=== PATIENT | male | born 1945 | race Caucasian/White ===

== ENCOUNTER 2017-11-06 20:47 | Emergency (ER) | payer MEDICARE ==
[2017-11-06] MEDS ORDERED: Acetaminophen/HYDROcodone 325-5 MG Tab PO ONE (21:50)
[2017-11-06] MEDS ORDERED: Albuterol/Ipratropium 3.0-0.5 MG/3 ML Neb Soln NEB ONE (21:51)
--- NOTE | 2017-11-06 23:35 | EDM.PDOC ---
ED HPI GENERAL MEDICAL PROBLEM - General Chief Complaint: Cardiovascular Problem Stated Complaint: CHEST PAIN / BACK PAIN Time Seen by Provider: 11/06/17 21:36 Source of Information: Reports: Patient History Limitations: Reports: No Limitations - History of Present Illness INITIAL COMMENTS - FREE TEXT/NARRATIVE: This patient has multiple complaints. He's having some low back pain that's a chronic problem for him he would like something or the pain. He's also had some shortness of breath he has chronic shortness of breath due to COPD but about the last 3 nights it's been a little bit worse. Today he had an episode where his heart seemed to very rapidly for a short while and then seemed to stop and then he felt a couple of pounding beats and it's back to normal. 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 He goes to the [facility] in [place] does not have a primary care physician locally. Back Pain Score (Numeric/FACES): 6 Chest Pain Score (Numeric/FACES): 6 - Related Data Allergies Allergy/AdvReac Type Severity Reaction Status Date / Time chlorpromazine Allergy Agitation Verified 11/06/17 21:09 [From Thorazine] sertraline [From Zoloft] Allergy Agitation Verified 11/06/17 21:09 Home Meds: Home Meds Acetaminophen with Codeine [Tylenol with Codeine #3 Tablet] 1 tab PO TID [History] Atropine [West-Tropine] 0.4 mg PO DAILY 11/06/17 [History] Simvastatin [Zocor] 20 mg PO DAILY 11/06/17 [History] hydrOXYzine HCl [hydrOXYzine] 50 mg PO BID 11/06/17 [History] traZODone 100 mg PO BEDTIME 11/06/17 [History] Past Medical History Musculoskeletal History: Reports: Back Pain, Chronic Oncologic (Cancer) History: Reports: Prostate - Past Surgical History Other Cardiovascular Surgeries/Procedures: aortic anurism Male Surgical History: Reports: Prostatectomy Musculoskeletal Surgical History: Reports: Other (See Below) Other Musculoskeletal Surgeries/Procedures:: back surgery. knee surgery left knee Social & Family History - Tobacco Use Smoking Status *Q: Heavy Tobacco Smoker Years of Tobacco use: 52 Packs/Tins Daily: 1 - Caffeine Use Caffeine Use: Reports: Soda - Recreational Drug Use Recreational Drug Use: No ED ROS GENERAL - Review of Systems Review Of Systems: ROS reveals no pertinent complaints other than HPI. ED EXAM, GENERAL - Physical Exam Exam: See Below Exam Limited By: No Limitations General Appearance: Alert, WD/WN, Mild Distress (Seems to have low back pain when he moves) Eye Exam: Bilateral Eye: Normal Inspection Throat/Mouth: Normal Inspection Respiratory/Chest: Lungs Clear Cardiovascular: Normal Peripheral Pulses, Regular Rate, Rhythm GI/Abdominal: Non-Tender Extremities: Normal Inspection Neurological: Alert, Oriented Psychiatric: Normal Affect Skin Exam: Warm, Dry Course - Vital Signs Last Recorded V/S: Last Vital Signs Temp 37.3 C 11/06/17 21:13 Pulse 78 11/06/17 23:02 Resp 23 H 11/06/17 23:02 BP 197/96 H 11/06/17 23:02 Pulse Ox 91 L 11/06/17 23:02 - Orders/Labs/Meds Orders: Active Orders 24 hr Category Date Time Status EKG Documentation Completion [RC] ASDIRECTED Care 11/06/17 21:50 Active RT Aerosol Therapy [RC] ASDIRECTED Care 11/06/17 21:51 Active Chest 2V [CR] Urgent Exams 11/06/17 21:50 Taken EKG 12 Lead [EK] Urgent Ther 11/06/17 21:50 Ordered Labs: Laboratory Tests 11/06/17 11/06/17 11/06/17 Range/Units 22:02 22:02 22:02 WBC 10.5 (4.5-11.0) K/uL RBC 4.75 (4.30-5.90) M/uL Hgb 14.9 (12.0-15.0) g/dL Hct 43.8 (40.0-54.0) % MCV 92 (80-98) fL MCH 31 (27-31) pg MCHC 34 (32-36) % Plt Count 274 (150-400) K/uL Neut % (Auto) 70 H (36-66) % Lymph % (Auto) 20 L (24-44) % [place] % (Auto) 9 H (2-6) % Eos % (Auto) 1 L (2-4) % Baso % (Auto) 1 (0-1) % Sodium 137 L (140-148) mmol/L Potassium 3.7 (3.6-5.2) mmol/L Chloride 100 (100-108) mmol/L Carbon Dioxide 29 (21-32) mmol/L Anion Gap 11.7 (5.0-14.0) mmol/L BUN 18 (7-18) mg/dL Creatinine 1.3 (0.8-1.3) mg/dL Est Cr Clr Drug Dosing 58.03 mL/min Estimated GFR (MDRD) 55 L (>60) Glucose 105 (74-106) mg/dL Calcium 8.9 (8.5-10.1) mg/dL Total Bilirubin 0.7 (0.2-1.0) mg/dL AST 16 (15-37) U/L ALT 22 (12-78) U/L Alkaline Phosphatase 76 (46-116) U/L Troponin I 0.027 (0.000-0.056) ng/mL NT-Pro-B Natriuret Pep 9474 H (5-125) pg/mL Total Protein 6.9 (6.4-8.2) g/dL Albumin 3.1 L (3.4-5.0) g/dL Globulin 3.8 H (2.3-3.5) g/dL Albumin/Globulin Ratio 0.8 L (1.2-2.2) Meds: Medications Discontinued Medications Generic Name Dose Route Start Last Admin Trade Name Freq PRN Reason Stop Dose Admin Hydrocodone Bitart/Acetaminophen 2 tab 11/06/17 21:50 11/06/17 21:54 [place] 325-5 Mg PO 11/06/17 21:51 2 tab ONETIME ONE Administration Albuterol/Ipratropium 3 ml 11/06/17 21:51 11/06/17 21:55 Duoneb 3.0-0.5 Mg/3 Ml NEB 11/06/17 21:52 3 ml ONETIME ONE Administration - Radiology Interpretation Free Text/Narrative:: Chest x-ray showed hyperexpanded lungs consistent with COPD. There may be some cephalization and there may be very small bilateral pleural effusions. Heart size looks like upper limits of normal in a COPD'er - Re-Assessments/Exams Free Text/Narrative Re-Assessment/Exam: 11/07/17 05:37 EKG shows a sinus rhythm at 76 bpm possibly some left atrial enlargement there is a PAC also QT interval is prolonged. I don't see any medications that would be causing this Departure - Departure Time of Disposition: 23:31 Disposition: Home, Self-Care 01 Condition: Fair Clinical Impression: Shortness of breath, Shortness of breath Instructions: Shortness of Breath, Adult, [id number] Referrals: PCP,None [Primary Care Provider] - Forms: ED Department Discharge Additional Instructions: Your chest x-ray looks like there may be some weakness in your heart that's causing the blood to back up a little bit. There could be a very small amount of fluid under the lungs so. A blood test also shows that there may be some weakness in the heart. This could cause that back up in the blood. Eventually it could lead to some fluid in your lungs. You'll need to have some further tests done such as an echocardiogram. [facility] 2 [facility]. For your back pain you can take the [place] 5/325 one or 2 tabs every 4 hours. This medication can cause sedation and impair driving and operating machinery. - My Orders Last 24 Hours: My Active Orders 11/06/17 21:50 EKG Documentation Completion [RC] ASDIRECTED Chest 2V [CR] Urgent EKG 12 Lead [EK] Urgent 11/06/17 21:51 RT Aerosol Therapy [RC] ASDIRECTED - Assessment/Plan Last 24 Hours: My Active Orders 11/06/17 21:50 EKG Documentation Completion [RC] ASDIRECTED Chest 2V [CR] Urgent EKG 12 Lead [EK] Urgent 11/06/17 21:51 RT Aerosol Therapy [RC] ASDIRECTED
--- NOTE | 2017-11-07 09:05 | CR ---
Chest 2V HISTORY: pain COMPARISON: None FINDINGS: Lungs are hyperinflated with flattening of the diaphragm consistent with a component of COPD. No acut e infiltrate is identified. Cardiomediastinal silhouette is within normal limits. No vascular redistr ibution or pleural fluid can be seen. Bony structures and soft tissues are unremarkable. IMPRESSION: Hyperinflation consistent with COPD. No acute chest abnormality is identified.
== END 2017-11-06 23:43 | disposition home or self-care (01) ==
LOC: JP.ED 20:47
DX: R06.02 Shortness of breath (principal); J44.9 Chronic obstructive pulmonary disease, unspecified; F17.210 Nicotine dependence, cigarettes, uncomplicated; Z88.8 Allergy status to other drugs, medicaments and biological substances; Z79.899 Other long term (current) drug therapy
CPT/HCPCS: 36415; 71046; 80053; 83880; 84484; 85025; 93005; 94640; 99284; A9270; J7620

== ENCOUNTER 2017-11-15 01:00 | Emergency (ER) | payer MEDICARE ==
[2017-11-15] MEDS ORDERED: Furosemide 20 MG Tab PO ONE (01:55)
--- NOTE | 2017-11-15 02:01 | EDM.PDOC ---
ED HPI GENERAL MEDICAL PROBLEM - General Chief Complaint: Respiratory Problem Stated Complaint: MEDICAL V[facility] Time Seen by Provider: 11/15/17 01:39 Source of Information: Reports: Patient, RN Notes Reviewed History Limitations: Reports: No Limitations - History of Present Illness INITIAL COMMENTS - FREE TEXT/NARRATIVE: 72-year-old gentleman presents to the emergency department today with increasing shortness of breath, he was evaluated in the emergency department on November 06 of this month at that time felt to be in exacerbation of congestive heart failure with newly diagnosed COPD probably related to cor pulmonale picture there was a discussion at the time he did not want hospitalization [facility] unfortunately his appointment is on Sunday and he has not had an opportunity to follow-up with his primary care provider. He returns the EMS services for increasing shortness of breath he denies any fevers no nausea vomiting no GI symptomology continues to use tobacco products back pain Pain Score (Numeric/FACES): 4 - Related Data Allergies Allergy/AdvReac Type Severity Reaction Status Date / Time chlorpromazine Allergy Agitation Verified 11/06/17 21:09 [From Thorazine] sertraline [From Zoloft] Allergy Agitation Verified 11/06/17 21:09 Home Meds: Home Meds Acetaminophen with Codeine [Tylenol with Codeine #3 Tablet] 1 tab PO TID [History] Atropine [West-Tropine] 0.4 mg PO DAILY 11/06/17 [History] Simvastatin [Zocor] 20 mg PO DAILY 11/06/17 [History] hydrOXYzine HCl [hydrOXYzine] 50 mg PO BID 11/06/17 [History] traZODone 100 mg PO BEDTIME 11/06/17 [History] Past Medical History HEENT History: Reports: Impaired Vision Cardiovascular History: Reports: Heart Failure (Probable cor pulmonale) Respiratory History: Reports: COPD Gastrointestinal History: Reports: Irritable Bowel Syndrome Musculoskeletal History: Reports: Back Pain, Chronic Neurological History: Reports: Head Trauma Oncologic (Cancer) History: Reports: Prostate - Infectious Disease History Infectious Disease History: Reports: Measles - Past Surgical History Cardiovascular Surgical History: Reports: Other (See Below) Other Cardiovascular Surgeries/Procedures: aortic anurism Male Surgical History: Reports: Prostatectomy Neurological Surgical History: Reports: Other (See Below) Other Neurological Surgeries/Procedures: rods placed in back, patient states, " i dont know what they did but they put rods in my back." Musculoskeletal Surgical History: Reports: Other (See Below) Other Musculoskeletal Surgeries/Procedures:: back surgery. knee surgery left knee Social & Family History - Tobacco Use Smoking Status *Q: Heavy Tobacco Smoker Years of Tobacco use: 52 Packs/Tins Daily: 1 - Caffeine Use Caffeine Use: Reports: Soda - Recreational Drug Use Recreational Drug Use: No ED ROS GENERAL - Review of Systems Review Of Systems: See Below Constitutional: Reports: No Symptoms HEENT: Reports: No Symptoms Respiratory: Reports: Shortness of Breath Cardiovascular: Reports: Dyspnea on Exertion GI/Abdominal: Reports: No Symptoms : Reports: No Symptoms ED EXAM, GENERAL - Physical Exam Exam: See Below Exam Limited By: No Limitations General Appearance: Alert, WD/WN, No Apparent Distress Neck: Normal Inspection, Supple, Non-Tender, Full Range of Motion Respiratory/Chest: No Respiratory Distress, No Accessory Muscle Use, Crackles ( Based bilaterally) Cardiovascular: Regular Rate, Rhythm, No Murmur GI/Abdominal: Soft, Non-Tender Course - Vital Signs Last Recorded V/S: Last Vital Signs Temp 97.2 F 11/15/17 01:16 Pulse 71 11/15/17 01:16 Resp 16 11/15/17 01:16 BP 180/93 H 11/15/17 01:16 Pulse Ox 93 L 11/15/17 01:16 - Orders/Labs/Meds Orders: Active Orders 24 hr Category Date Time Status Furosemide [Lasix] Med 11/15/17 01:55 Once 20 mg PO ONETIME ONE Medication Orders Furosemide (Lasix) 20 mg PO ONETIME ONE Stop: 11/15/17 01:56 Meds: Medications Generic Name Dose Route Start Last Admin Trade Name Freq PRN Reason Stop Dose Admin Furosemide 20 mg 11/15/17 01:55 Lasix PO 11/15/17 01:56 ONETIME ONE Departure - Departure Time of Disposition: 02:00 Disposition: Home, Self-Care 01 Condition: Fair Clinical Impression: Chronic obstructive pulmonary disease Qualifiers: COPD type: unspecified COPD Qualified Code(s): J44.9 - Chronic obstructive pulmonary disease, unspecified Referrals: PCP,None [Primary Care Provider] - Additional Instructions: Use your albuterol inhaler as needed, start the Lasix one tablet once a day tomorrow morning, please keep your follow-up appointment with your primary care provider on Sunday, call return to the emergency department worsening of symptoms - My Orders Last 24 Hours: My Active Orders 11/15/17 01:55 Furosemide [Lasix] 20 mg PO ONETIME ONE - Assessment/Plan Last 24 Hours: My Active Orders 11/15/17 01:55 Furosemide [Lasix] 20 mg PO ONETIME ONE Plan: Assessment Acuity = acute Site and laterality = COPD exacerbation with elevated BNP consistent with heart failure pattern Etiology = suspicious for underlying cor pulmonale Manifestations = dyspnea Location of injury = Home Lab values = none Plan I did sit and review the lab work with him from the visit emergency department on November 06 are most remarkable aspect was a BNP of 9400. He is not on any breathing treatments also he is not on any diuretics. I provided him a prescription for Lasix 20 mg once a day as well as an abuser all inhaler, this should be enough for him to get started for his follow-up with his primary care on Sunday This note was dictated using Vee[employer] voice recognition software please call with any questions on syntax or tim.
[2017-11-15] MEDS ORDERED: Nitroglycerin 0.4 MG Tab.SL SL ONE (02:09)
== END 2017-11-15 02:22 | disposition home or self-care (01) ==
LOC: JP.ED 01:00
DX: J44.1 Chronic obstructive pulmonary disease with (acute) exacerbation (principal); I50.9 Heart failure, unspecified; F17.210 Nicotine dependence, cigarettes, uncomplicated; Z88.8 Allergy status to other drugs, medicaments and biological substances; Z79.899 Other long term (current) drug therapy
CPT/HCPCS: 99283; 99285; A9270

== ENCOUNTER 2017-11-18 19:09 | Inpatient (IN) | payer MEDICARE, OTHER ==
[2017-11-18] MEDS ORDERED: Acetaminophen/oxyCODONE 325-5 MG Tab PO ONE (19:47)
[2017-11-18] MEDS ORDERED: Lisinopril 10 MG Tab PO ONE (20:30)
--- NOTE | 2017-11-18 21:03 | EDM.PDOC ---
ED HPI GENERAL MEDICAL PROBLEM - General Chief Complaint: Chest Pain Stated Complaint: CHEST PAINS Time Seen by Provider: 11/18/17 19:28 Source of Information: Reports: Patient History Limitations: Reports: No Limitations - History of Present Illness INITIAL COMMENTS - FREE TEXT/NARRATIVE: This gentleman comes in complaining of chest pain for about 2 weeks. He describes sort of a dull substernal pressure like sensation but then gets frequent sharp stabs of pain in the lower sternal area which sort of radiates to his back. He also notes pain with breathing as well as some chest wall tenderness. When seen on November 06 chest x-ray was done initially was thought to show mild CHF changes but subsequently the radiologist read this as COPD only. Patient occasionally gets short of breath at home. He has COPD which was diagnosed just recently. He said he's been afraid to fall asleep at night for the past 5 or 6 days because of this at the time of exam he is just having some very mild vague chest pressure but he continues to get these sharp stabs of pain and when he has the sharp stabs he sort of jumps is also noted to be hypertensive it was planned back then from the [facility] 2 days so nothing was done about that. He was seen in the ER again 3 days ago and was having some shortness of breath. He was prescribed an albuterol inhaler and put on Lasix 20 mg daily. He does not have a local doctor he gets even his primary care at the [facility] in [place] This patient has had a thoracic aortic aneurysm repaired - Related Data Allergies Allergy/AdvReac Type Severity Reaction Status Date / Time chlorpromazine AdvReac Agitation Verified 11/18/17 20:43 [From Thorazine] sertraline [From Zoloft] AdvReac Agitation Verified 11/18/17 20:43 Home Meds: Home Meds Acetaminophen with Codeine [Tylenol with Codeine #3 Tablet] 1 tab PO QID [History] Atropine [[place]-Tropine] 0.4 mg PO BID 11/06/17 [History] Simvastatin [Zocor] 20 mg PO BEDTIME 11/06/17 [History] hydrOXYzine HCl [hydrOXYzine] 50 mg PO QID 11/06/17 [History] traZODone 100 mg PO BEDTIME 11/06/17 [History] Pregabalin [Lyrica] 25 mg PO BID 11/18/17 [History] Past Medical History HEENT History: Reports: Impaired Vision Cardiovascular History: Reports: Aneurysm, High Cholesterol Respiratory History: Reports: COPD Gastrointestinal History: Reports: Irritable Bowel Syndrome Musculoskeletal History: Reports: Back Pain, Chronic Neurological History: Reports: Head Trauma Psychiatric History: Reports: Anxiety, Depression, PTSD Hematologic History: Reports: Blood Transfusion(s) Oncologic (Cancer) History: Reports: Prostate - Infectious Disease History Infectious Disease History: Reports: Measles - Past Surgical History Cardiovascular Surgical History: Reports: Other (See Below) Other Cardiovascular Surgeries/Procedures: aortic aneurysm- fixed in 2016 Male Surgical History: Reports: Prostatectomy Neurological Surgical History: Reports: Other (See Below) Other Neurological Surgeries/Procedures: rods placed in back, patient states, " i dont know what they did but they put rods in my back." Musculoskeletal Surgical History: Reports: Arthroscopic Knee, Other (See Below) Other Musculoskeletal Surgeries/Procedures:: back surgery. knee surgery left knee Social & Family History - Tobacco Use Smoking Status *Q: Current Every Day Smoker Years of Tobacco use: 55 Packs/Tins Daily: 1 - Caffeine Use Caffeine Use: Reports: None - Recreational Drug Use Recreational Drug Use: No ED ROS GENERAL - Review of Systems Review Of Systems: See Below Constitutional: Reports: No Symptoms HEENT: Reports: No Symptoms Respiratory: Reports: Shortness of Breath Cardiovascular: Reports: Chest Pain, Blood Pressure Problem, Other Endocrine: Reports: No Symptoms (See history of present illness) GI/Abdominal: Reports: No Symptoms : Reports: No Symptoms Musculoskeletal: Reports: No Symptoms Skin: Reports: No Symptoms Neurological: Reports: No Symptoms ED EXAM, GENERAL - Physical Exam Exam: See Below Exam Limited By: No Limitations General Appearance: Alert, WD/WN, Mild Distress (He seems to occasionally get sharp stabs of pain that caused him to jump) Eye Exam: Bilateral Eye: Normal Inspection Ears: Normal External Exam Nose: Normal Inspection Throat/Mouth: Normal Oropharynx Respiratory/Chest: Lungs Clear, Decreased Breath Sounds. No: Rales Cardiovascular: Regular Rate, Rhythm, No Murmur Peripheral Pulses: 1+: Radial (L) (There is a very weak left radial pulse), 2+: Radial (R) (. right radial pulse is very strong ) GI/Abdominal: Non-Tender Back Exam: Normal Inspection Extremities: Normal Inspection Neurological: Alert, Oriented, CN II-XII Intact, No Motor/Sensory Deficits Psychiatric: Normal Affect Skin Exam: Warm, Dry Course - Vital Signs Last Recorded V/S: Last Vital Signs Temp 36.2 C 11/18/17 19:13 Pulse 79 11/18/17 20:40 Resp 17 11/18/17 20:40 BP 194/98 H 11/18/17 20:40 Pulse Ox 93 L 11/18/17 20:40 - Orders/Labs/Meds Orders: Active Orders 24 hr Category Date Time Status EKG Documentation Completion [RC] ASDIRECTED Care 11/18/17 19:47 Active Chest 1V Frontal [CR] Urgent Exams 11/18/17 19:46 Taken EKG 12 Lead [EK] Urgent Ther 11/18/17 19:46 Ordered Labs: Laboratory Tests 11/18/17 11/18/17 Range/Units 19:57 19:57 WBC 8.5 (4.5-11.0) K/uL RBC 4.69 (4.30-5.90) M/uL Hgb 14.7 (12.0-15.0) g/dL Hct 42.9 (40.0-54.0) % MCV 92 (80-98) fL MCH 31 (27-31) pg MCHC 34 (32-36) % Plt Count 219 (150-400) K/uL Neut % (Auto) 79 H (36-66) % Lymph % (Auto) 12 L (24-44) % [place] % (Auto) 7 H (2-6) % Eos % (Auto) 1 L (2-4) % Baso % (Auto) 1 (0-1) % Sodium 142 (140-148) mmol/L Potassium 3.7 (3.6-5.2) mmol/L Chloride 102 (100-108) mmol/L Carbon Dioxide 32 (21-32) mmol/L Anion Gap 7.6 (5.0-14.0) mmol/L BUN 21 H (7-18) mg/dL Creatinine 1.2 (0.8-1.3) mg/dL Est Cr Clr Drug Dosing 62.87 mL/min Estimated GFR (MDRD) 60 (>60) Glucose 144 H (74-106) mg/dL Calcium 8.4 L (8.5-10.1) mg/dL Total Bilirubin 0.5 (0.2-1.0) mg/dL AST 19 (15-37) U/L ALT 21 (12-78) U/L Alkaline Phosphatase 68 (46-116) U/L Troponin I 0.035 (0.000-0.056) ng/mL NT-Pro-B Natriuret Pep 93458 H (5-125) pg/mL Total Protein 6.7 (6.4-8.2) g/dL Albumin 2.9 L (3.4-5.0) g/dL Globulin 3.8 H (2.3-3.5) g/dL Albumin/Globulin Ratio 0.8 L (1.2-2.2) Meds: Medications Discontinued Medications Generic Name Dose Route Start Last Admin Trade Name Freq PRN Reason Stop Dose Admin Lisinopril 10 mg 11/18/17 20:30 11/18/17 20:40 Prinivil PO 11/18/17 20:31 10 mg ONETIME ONE Administration Oxycodone/Acetaminophen 2 tab 11/18/17 19:47 11/18/17 19:50 Percocet 325-5 Mg PO 11/18/17 19:48 2 tab ONETIME ONE Administration - Radiology Interpretation Free Text/Narrative:: Chest x-ray shows changes consistent with COPD but no definite congestive failure - Re-Assessments/Exams Free Text/Narrative Re-Assessment/Exam: 11/18/17 21:04 EKG shows sinus rhythm at 87 bpm probably some left atrial enlargement there is a lack of R-wave height in the 2 suggesting a anteroseptal infarct and that was seen on his previous EKG. There may be slight ST depression in lateral leads This patient was given Percocet 5/325 2 tablets by mouth and then later given lisinopril 10 mg orally. Free Text/Narrative Re-Assessment/Exam: 11/18/17 21:05 [facility] [place] [facility] Lord and he felt it would be okay for him to be hospitalized at our facility. I spoke with Dr. Victor he would like him admitted to the ICU and he will be in to see him shortly Departure - Departure Time of Disposition: 21:06 Disposition: Admitted As Inpatient 68 Condition: Fair Clinical Impression: Chest pain Chronic obstructive pulmonary disease Qualifiers: COPD type: unspecified COPD Qualified Code(s): J44.9 - Chronic obstructive pulmonary disease, unspecified Referrals: PCP,None [Primary Care Provider] - Forms: ED Department Discharge - My Orders Last 24 Hours: My Active Orders 11/18/17 19:46 Chest 1V Frontal [CR] Urgent EKG 12 Lead [EK] Urgent 11/18/17 19:47 EKG Documentation Completion [RC] ASDIRECTED - Assessment/Plan Last 24 Hours: My Active Orders 11/18/17 19:46 Chest 1V Frontal [CR] Urgent EKG 12 Lead [EK] Urgent 11/18/17 19:47 EKG Documentation Completion [RC] ASDIRECTED
[2017-11-18] MEDS ORDERED: Nitroglycerin 0.4 MG Tab.SL SL PRN (22:06)
[2017-11-18] MEDS ORDERED: Metoprolol Tartrate 25 MG Tab PO ONE (22:30)
[2017-11-18] MEDS ORDERED: Pregabalin 25 MG Cap PO ONE (23:15)
[2017-11-18] MEDS ORDERED: Acetaminophen/Codeine 300-30 MG Tab PO ONE (23:15)
[2017-11-18] MEDS ORDERED: hydrOXYzine HCl 25 MG Tab PO ONE (23:15)
[2017-11-18] MEDS ORDERED: Simvastatin 20 MG Tab PO ONE (23:15)
[2017-11-18] MEDS ORDERED: traZODone 50 MG Tab PO ONE (23:15)
[2017-11-18] MEDS: Albuterol/Ipratropium 3.0-0.5 MG/3 ML Neb Soln NEB SCH (23:28)
[2017-11-18] MEDS: Atropine/Diphenoxylate 0.025-2.5 MG Tab PO SCH (23:52)
--- NOTE | 2017-11-19 03:19 | HP ---
IDENTIFYING DATA: Tree Olivares is a 72-year-old male from [place]. CHIEF COMPLAINT: Chest pain and decreased exercise tolerance. HISTORY OF PRESENT ILLNESS: An elderly gentleman, chronically disabled by previous back injury, has a lifelong history of 1-pack per day tobacco use, having discontinued approximately 2 weeks ago. He notes a 2-week history of diminished exercise tolerance, vague recurring anterior chest discomfort, and cough with sputum production ranging from milky to brown in appearance. He has had no fevers or chills. No hemoptysis. No history of documented obstructive pulmonary disease, though radiographic studies have suggested such. He has been seen on 2 earlier occasions in the emergency room with chest discomfort and shortness of breath. He is noted to have an elevated BNP suggesting early congestive heart failure and was provided albuterol metered-dose inhaler as well as Lasix. He has not initiated his diuretic therapy. He is using his albuterol on a p.r.n. basis and notes subjective relief of dyspneic symptoms for less than 0.5 hour. He has a noted history of hypertension and hyperlipidemia. No definitive history of ischemic heart disease, DE, stroke, or stroke-like episodes. He does have a history of a thoracic aortic aneurysm, managed with an aortic aneurysm resection in 2016. 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 He reports previous radiographic studies have shown asymmetry in size of the kidneys, though by lab results, renal function appears to be stable and radiographic imaging shows no progressive changes in the appearance of the renal anatomy by CT imaging. PAST MEDICAL HISTORY: Previous surgeries included thoracic aneurysm repair in 2016, stenting of bilateral iliac stenosis 2015, left total knee arthroplasty. He also reports a fall from a 25-foot height while working in the [facility] in 1984 with resultant back injury requiring surgical stabilization with multiple rods. He has had chronic pain secondary to this with resultant disability. HABITS: Previous one-pack per day tobacco use. Infrequent use of caffeinated beverages. No use of alcohol. IMMUNIZATIONS: He does receive annual influenza vaccine at the [facility]. He reports his pneumococcal series is complete. 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 SOCIAL HISTORY: Disabled by chronic health problems. [place], [place]. FAMILY HISTORY: Notes mother had a history of chronic bronchitis. Brothers have a history of obstructive pulmonary disease. Brother has a history of diabetes and prostate cancer. REVIEW OF SYSTEMS: NEUROLOGIC: No stroke, seizures, or focal weakness. Chronic back pain secondary to injury as noted. He has general anxiety and reported PTSD. CARDIAC: As above. RESPIRATORY: COPD with discolored sputum production developing. GI: Remote history of suspected hepatitis. No active hepatic disease. Denies diarrhea, melena, hematochezia, or chronic dyspepsia. : Asymmetry in renal size without evidence of renal insufficiency by lab review. MUSCULOSKELETAL: Chronic back pain. Previous left total knee arthroplasty. ALLERGIES: HE NOTES AGITATION WITH USE OF CHLORPROMAZINE AND SERTRALINE. MEDICATIONS: Acetaminophen with codeine 1 tablet q.i.d., atropine 0.4 mg b.i.d., simvastatin 20 mg at h.s., hydroxyzine 50 mg q.i.d., trazodone 100 mg at h.s., Lyrica 25 mg b.i.d. PHYSICAL EXAMINATION: GENERAL: Appearance is that of an adult male in mild respiratory distress. VITAL SIGNS: Temperature 36.2 degrees centigrade, pulse 79, respiratory rate 17, blood pressure elevated at 194/98, O2 saturation is 93% on room air. HEENT: Hearing is intact with normal canals. Sclerae are anicteric. Extraocular eye movements are intact. No facial asymmetry. Speech is clear. Oral mucosa is moist and pink. NECK: Brisk, regular carotid pulses without bruits, JVD, or adenopathy. LUNGS: Resonant to percussion, mildly labored respiratory effort. Coarse bilateral expiratory rhonchi. No wheezes or rales. No retractions. HEART: Regular without murmurs or gallops noted. ABDOMEN: Nontender, nondistended. No organomegaly. Active sounds. Good femoral pulses. No abdominal bruits or CVA pain. : Omitted. RECTAL: Omitted. EXTREMITIES: Palpable posterior tibial and dorsal pedal pulses. SKIN: Warm, pink, and dry with brisk capillary refill. No pitting edema or open skin lesions. LABORATORY DATA: On admission, WBC 8.5, hemoglobin 14.7, hematocrit 42.9, platelet count 219,000. Sodium 142, potassium 3.7, BUN 21, creatinine 1.2, glucose 144, calcium 8.4, alkaline phosphatase 68, AST 19. BNP is elevated at 13,984. Chest x-ray reports suspected obstructive pulmonary disease without evidence of acute infiltrates. IMPRESSION: 1. Recurring anterior chest discomfort. 2. Suspected obstructive pulmonary disease with acute exacerbation and increased sputum production. 3. Longstanding tobacco use with recent discontinuation. 4. Hypertension. 5. Hyperlipidemia. 6. Elevated BNP suggest underlying congestive heart failure. 7. History of thoracic aneurysm with surgical repair in 2015. 8. Peripheral vascular disease with bilateral iliac artery stenting in 2015. 9. Remote history of lumbar spine injury requiring surgical stabilization in 1984. PLAN: The patient appears to be in mild respiratory distress. We will monitor in the ICU, provide O2 by nasal cannula, and initiate DuoNebs on a routine basis. Oral antibiotics with use of cefdinir are offered. To evaluate for potential underlying congestive heart failure, echocardiogram is requested. Additionally, we will repeat troponin in the a.m. Renal function currently appears to be stable. We will maintain on standard home medications. The patient does indicate desire to proceed with resuscitative efforts including CPR and ventilatory support if reversible condition warrants aggressive cares. We will anticipate discharge of less than 72 hours and probable outpatient [facility] with [facility]. Nilo Sue MD /[id number]
[2017-11-19] MEDS: Albuterol/Ipratropium 3.0-0.5 MG/3 ML Neb Soln NEB SCH ×4 (05:25→22:05)
[2017-11-19] MEDS: Acetaminophen/Codeine 300-30 MG Tab PO SCH ×4 (05:26→22:04)
[2017-11-19] MEDS: hydrOXYzine HCl 25 MG Tab PO SCH ×4 (05:26→22:04)
--- NOTE | 2017-11-19 06:44 | PN ---
DATE OF SERVICE: 11/19/2017 SUBJECTIVE: An elderly male with a lifelong history of chronic tobacco use and suspected underlying COPD additionally with a history of hypertension, hyperlipidemia, and previous thoracic aneurysm repair was admitted with atypical recurring anterior chest pain in the late evening hours yesterday. Through the night, he has rested comfortably with use of cardiac monitoring, hypertensive management, initiated oral antibiotics and oxygen therapy coupled with inhaled bronchodilators. He denies current pain. Does have a moderately productive cough, O2 sats are fluctuating though stabilized with oxygen supplementation. OBJECTIVE: VITAL SIGNS: Temperature 36.4 degrees centigrade, pulse 54, sinus bradycardia with beta-amador having been initiated, blood pressure 126/54, respiratory rate 20 with O2 sats of 88%. NECK: Brisk carotid pulses. No bruits or JVD. LUNGS: Continued expiratory rhonchi. Respiratory rate is easy at the present time. HEART: Regular, bradycardic. No murmurs or gallops noted. EXTREMITIES: Warm, pink, and dry. Followup troponin this a.m. is pending. IMPRESSION AND PLAN: Complaints of diminished exercise tolerance and atypical chest pain. Suspect this is secondary to underlying obstructive pulmonary disease accompanied by acute bronchitic illness. We will continue with inhaled therapies and antibiotics. The patient does have a pending echocardiogram with noted elevated BNP on admission. Additionally, when his respiratory status stabilizes, would benefit from pulmonary function test. Suspect ongoing inhaled therapies will be necessary for respiratory support as well, and would consider initiating Spiriva with p.r.n. rescue beta agonists on time of discharge. Allow light activity with ambulation. Provide standard diet. We will follow up at midday to make decisions on potential discharge planning. Nilo Sue MD /[id number]
[2017-11-19] MEDS: Aspirin 81 MG Tab.Chew PO SCH (08:41)
[2017-11-19] MEDS: Cefdinir 300 MG Cap PO SCH ×2 (08:41→22:03)
[2017-11-19] MEDS: amLODIPine 5 MG Tab PO SCH (08:42)
[2017-11-19] MEDS: Atropine/Diphenoxylate 0.025-2.5 MG Tab PO SCH ×2 (08:45→22:04)
[2017-11-19] MEDS: Pregabalin 25 MG Cap PO SCH ×2 (08:46→22:03)
[2017-11-19] MEDS ORDERED: Metoprolol Tartrate 25 MG Tab PO SCH (09:00)
--- NOTE | 2017-11-19 10:06 | CR ---
Chest 1V Frontal HISTORY: Pain COMPARISON: 11/06/2017 FINDINGS: Interstitial perihilar prominence likely representing mild edema. No dense consolidation. T he cardiac size is stable. Impression: Probable mild CHF. No focal dense infiltrate.
[2017-11-19] MEDS ORDERED: traZODone 50 MG Tab PO SCH (21:00)
[2017-11-19] MEDS: Simvastatin 20 MG Tab PO SCH ×2 (22:04→22:08)
[2017-11-20] MEDS: Albuterol/Ipratropium 3.0-0.5 MG/3 ML Neb Soln NEB SCH ×2 (05:27→10:34)
[2017-11-20] MEDS: Acetaminophen/Codeine 300-30 MG Tab PO SCH ×2 (05:27→09:31)
[2017-11-20] MEDS: hydrOXYzine HCl 25 MG Tab PO SCH (05:27)
[2017-11-20] MEDS: Aspirin 81 MG Tab.Chew PO SCH (09:22)
[2017-11-20] MEDS: amLODIPine 5 MG Tab PO SCH (09:23)
[2017-11-20] MEDS: Atropine/Diphenoxylate 0.025-2.5 MG Tab PO SCH (09:24)
[2017-11-20] MEDS: Cefdinir 300 MG Cap PO SCH (09:27)
[2017-11-20] MEDS: Pregabalin 25 MG Cap PO SCH (09:27)
== END 2017-11-20 11:19 | disposition home or self-care (01) | DRG 192 ==
LOC: JP.ED 19:09 → OBSVTOIN 21:08 → JP.ICU 21:08
PROVIDERS: ADMIT Family Medicine; ATTEND Family Medicine
DX: J44.1 Chronic obstructive pulmonary disease with (acute) exacerbation (principal); R07.9 Chest pain, unspecified; I10 Essential (primary) hypertension; E78.5 Hyperlipidemia, unspecified; I73.9 Peripheral vascular disease, unspecified; Z88.8 Allergy status to other drugs, medicaments and biological substances; Z79.899 Other long term (current) drug therapy; Z87.891 Personal history of nicotine dependence; F41.8 Other specified anxiety disorders; Z85.46 Personal history of malignant neoplasm of prostate; Z98.890 Other specified postprocedural states
CPT/HCPCS: 36415; 71045; 71045-26; 80053; 83880; 84484; 85025; 93005; 93306; 94640; 99285-25; A9270-GY; J7620

== ENCOUNTER 2017-11-30 11:00 | Emergency (ER) | payer OTHER ==
[2017-11-30] MEDS ORDERED: Nitroglycerin 0.4 MG Tab.SL SL ONE (12:06)
[2017-11-30] MEDS ORDERED: Furosemide 40 MG Tab PO ONE (12:06)
--- NOTE | 2017-11-30 12:10 | EDM.PDOC ---
ED HPI GENERAL MEDICAL PROBLEM - General Chief Complaint: General Stated Complaint: CHEST PRESSURE Time Seen by Provider: 11/30/17 11:39 Source of Information: Reports: Patient, RN Notes Reviewed History Limitations: Reports: No Limitations - History of Present Illness INITIAL COMMENTS - FREE TEXT/NARRATIVE: 72-year-old gentleman presents emergency department today complaint of blood pressure problems, he has known history of hypertension as well as congestive heart failure, he admits to being some confusion between his care [facility] here is currently not taking any medications He declines blood work, state he only wants an RX for his blood pressure Lower Back Pain Score (Numeric/FACES): 4 - Related Data Allergies Allergy/AdvReac Type Severity Reaction Status Date / Time chlorpromazine AdvReac Agitation Verified 11/30/17 11:11 [From Thorazine] sertraline [From Zoloft] AdvReac Agitation Verified 11/30/17 11:11 Home Meds: Home Meds Acetaminophen with Codeine [Tylenol with Codeine #3 Tablet] 1 tab PO QID [History] Simvastatin [Zocor] 20 mg PO BEDTIME 11/06/17 [History] hydrOXYzine HCl [hydrOXYzine] 50 mg PO QID 11/06/17 [History] traZODone 100 mg PO BEDTIME 11/06/17 [History] Pregabalin [Lyrica] 25 mg PO BID 11/18/17 [History] Albuterol Sulfate [Proventil Hfa] 1 puff INH Q4H PRN 11/19/17 [History] Albuterol/Ipratropium [DuoNeb 3.0-0.5 MG/3 ML] 3 ml NEB Q6H #120 neb 11/19/17 [ Rx] Aspirin 81 mg PO DAILY tab.chew 11/19/17 [Rx] Atropine/Diphenoxylate [Diphenoxylate-Atropine] 1 tab PO BID tablet 11/19/17 [ Rx] LORazepam 0.5 mg PO BID PRN #60 tablet 11/19/17 [Rx] Past Medical History HEENT History: Reports: Impaired Vision, Other (See Below) Other HEENT History: partial dentures Cardiovascular History: Reports: Aneurysm, Blood Clots/VTE/DVT, High Cholesterol , Hypertension Respiratory History: Reports: COPD Gastrointestinal History: Reports: Irritable Bowel Syndrome Genitourinary History: Reports: Prostate Disorder Musculoskeletal History: Reports: Back Pain, Chronic Neurological History: Reports: Head Trauma Psychiatric History: Reports: Anxiety, Depression, PTSD Endocrine/Metabolic History: Reports: Other (See Below) Other Endocrine/Metabolic History: on hormone shots Hematologic History: Reports: Blood Transfusion(s) Oncologic (Cancer) History: Reports: Prostate - Infectious Disease History Infectious Disease History: Reports: Chicken Pox, Measles, Mumps - Past Surgical History Cardiovascular Surgical History: Reports: AAA Repair, Other (See Below) Other Cardiovascular Surgeries/Procedures: aortic aneurysm- fixed in 2016 Male Surgical History: Reports: Prostatectomy Neurological Surgical History: Reports: Lumbar Spine, Other (See Below) Other Neurological Surgeries/Procedures: rods placed in back, patient states, " i dont know what they did but they put rods in my back." Musculoskeletal Surgical History: Reports: Arthroscopic Knee, Other (See Below) Other Musculoskeletal Surgeries/Procedures:: back surgery. knee surgery left knee Social & Family History - Tobacco Use Smoking Status *Q: Current Every Day Smoker Years of Tobacco use: 55 Packs/Tins Daily: 0.2 Used Tobacco, but Quit: Yes Month/Year Tobacco Last Used: 11/20/17 Second Hand Smoke Exposure: No - Caffeine Use Caffeine Use: Reports: None - Recreational Drug Use Recreational Drug Use: No ED ROS GENERAL - Review of Systems Review Of Systems: See Below Constitutional: Reports: No Symptoms Respiratory: Reports: Shortness of Breath Cardiovascular: Reports: Blood Pressure Problem GI/Abdominal: Reports: No Symptoms : Reports: No Symptoms ED EXAM, GENERAL - Physical Exam Exam: See Below Exam Limited By: No Limitations General Appearance: Alert, WD/WN, No Apparent Distress Neck: Normal Inspection, Supple, Non-Tender, Full Range of Motion Respiratory/Chest: No Respiratory Distress, Lungs Clear, Normal Breath Sounds, No Accessory Muscle Use Cardiovascular: Regular Rate, Rhythm, No Murmur GI/Abdominal: Soft, Non-Tender Course - Vital Signs Last Recorded V/S: Last Vital Signs Temp 96.8 F 11/30/17 11:23 Pulse 68 11/30/17 12:27 Resp 18 11/30/17 12:27 BP 176/90 H 11/30/17 12:27 Pulse Ox 96 11/30/17 12:27 - Orders/Labs/Meds Meds: Medications Discontinued Medications Generic Name Dose Route Start Last Admin Trade Name Tran PRN Reason Stop Dose Admin Furosemide 40 mg 11/30/17 12:06 11/30/17 12:12 Lasix PO 11/30/17 12:07 40 mg ONETIME ONE Administration Nitroglycerin 0.4 mg 11/30/17 12:06 11/30/17 12:13 Nitrostat SL 11/30/17 12:07 0.4 mg ONETIME ONE Administration Departure - Departure Time of Disposition: 12:36 Disposition: Home, Self-Care 01 Condition: Fair Clinical Impression: CHF, Congestive heart failure Hypertension Qualifiers: Hypertension type: essential hypertension Qualified Code(s): I10 - Essential ( primary) hypertension - Discharge Information Referrals: Finn Tineo MD [Primary Care Provider] - Forms: ED Department Discharge Additional Instructions: Please start medications of lisinopril 10 mg once a day start today, start your Lasix 20 mg once a day start tomorrow use Ativan as needed for anxiety symptoms , please follow-up with your primary care provider on Sunday for reevaluation, call return to the emergency department with worsening of symptoms - Assessment/Plan Plan: Assessment Acuity = acute Site and laterality = congestive heart failure and uncontrolled hypertension Etiology = poor medical compliance Manifestations = chest pressure Location of injury = Home Lab values = patient declined Plan He was given 1 sublingual nitroglycerin and 40 mg of Lasix by mouth his blood pressure did respond came down to the systolics of 170 he had good improvement felt better asked to be discharged home. I did agree to write him for medications of lisinopril 10 mg once a day total #30, Lasix 20 mg once day total #30 and Ativan 1 mg by mouth 3 times a day when necessary total #10, he has a follow-up with a new primary care provider on Sunday of this next week This note was dictated using [employer] voice recognition software please call with any questions on syntax or tim.
== END 2017-11-30 12:42 | disposition home or self-care (01) ==
LOC: JP.ED 11:00
DX: I11.0 Hypertensive heart disease with heart failure (principal); I50.9 Heart failure, unspecified; E78.00 Pure hypercholesterolemia, unspecified; J44.9 Chronic obstructive pulmonary disease, unspecified; F17.210 Nicotine dependence, cigarettes, uncomplicated; Z88.8 Allergy status to other drugs, medicaments and biological substances; Z79.82 Long term (current) use of aspirin; Z79.899 Other long term (current) drug therapy
CPT/HCPCS: 99285; A9270

== ENCOUNTER 2018-04-29 15:19 | Emergency (ER) | payer MEDICARE ==
[2018-04-29] MEDS ORDERED: Sodium Chloride 0.9% 1,000 ML IV SCH (15:30)
[2018-04-29] MEDS ORDERED: HYDROmorphone 1 MG/ML Syringe IVPUSH ONE (15:30)
[2018-04-29] MEDS ORDERED: Ondansetron 4 MG/2 ML SDV IVPUSH ONE (15:30)
[2018-04-29] MEDS ORDERED: LORazepam 2 MG/ML SDV IVPUSH ONE (16:31)
--- NOTE | 2018-04-29 18:04 | EDM.PDOC ---
ED HPI GENERAL MEDICAL PROBLEM - General Chief Complaint: Flank Pain Stated Complaint: RIGHT SIDE PAIN Time Seen by Provider: 04/29/18 15:30 Source of Information: Reports: Patient, Family () History Limitations: Reports: No Limitations - History of Present Illness INITIAL COMMENTS - FREE TEXT/NARRATIVE: right flank pain; this is a 72 year old male presents to ER with , reports sudden onset of right sided flank pain similar to his previous kidney stone attacks. reports pain started suddenly at 10 am this morning and has been in constant pain ever since. denies any injury to back , but had spinal surgery, and was cutting wood yesterday and threw a cord of wood. Onset: Sudden Onset Date: 04/29/18 Onset Time: 10:00 Duration: Constant Location: Reports: Back Quality: Reports: Sharp, Stabbing (intermittent) Severity: Severe Improves with: Reports: None Worsens with: Reports: Movement (constant pain unchanged with movement or rest) Right Flank Pain Score (Numeric/FACES): 10 - Related Data Allergies Allergy/AdvReac Type Severity Reaction Status Date / Time chlorpromazine AdvReac Agitation Verified 11/30/17 11:11 [From Thorazine] sertraline [From Zoloft] AdvReac Agitation Verified 11/30/17 11:11 Home Meds: Home Meds Simvastatin [Zocor] 20 mg PO BEDTIME 11/06/17 [History] hydrOXYzine HCl [hydrOXYzine] 50 mg PO QID 11/06/17 [History] traZODone 100 mg PO BEDTIME 11/06/17 [History] Pregabalin [Lyrica] 25 mg PO BID 11/18/17 [History] Albuterol Sulfate [Proventil Hfa] 1 puff INH Q4H PRN 11/19/17 [History] Albuterol/Ipratropium [DuoNeb 3.0-0.5 MG/3 ML] 3 ml NEB Q6H #120 neb 11/19/17 [ Rx] Aspirin 81 mg PO DAILY tab.chew 11/19/17 [Rx] Atropine/Diphenoxylate [Diphenoxylate-Atropine] 1 tab PO BID tablet 11/19/17 [ Rx] Lisinopril 20 mg PO DAILY 04/29/18 [History] Past Medical History HEENT History: Reports: Impaired Vision, Other (See Below) Other HEENT History: partial dentures Cardiovascular History: Reports: Aneurysm, Blood Clots/VTE/DVT, High Cholesterol , Hypertension Respiratory History: Reports: COPD Gastrointestinal History: Reports: Irritable Bowel Syndrome Genitourinary History: Reports: Prostate Disorder Musculoskeletal History: Reports: Back Pain, Chronic Neurological History: Reports: Head Trauma Psychiatric History: Reports: Anxiety, Depression, PTSD Endocrine/Metabolic History: Reports: Other (See Below) Other Endocrine/Metabolic History: on hormone shots Hematologic History: Reports: Blood Transfusion(s) Oncologic (Cancer) History: Reports: Prostate - Infectious Disease History Infectious Disease History: Reports: Chicken Pox, Measles, Mumps - Past Surgical History Cardiovascular Surgical History: Reports: AAA Repair, Other (See Below) Other Cardiovascular Surgeries/Procedures: aortic aneurysm- fixed in 2016 Male Surgical History: Reports: Prostatectomy Neurological Surgical History: Reports: Lumbar Spine, Other (See Below) Other Neurological Surgeries/Procedures: rods placed in back, patient states, " i dont know what they did but they put rods in my back." Musculoskeletal Surgical History: Reports: Arthroscopic Knee, Other (See Below) Other Musculoskeletal Surgeries/Procedures:: back surgery. knee surgery left knee Social & Family History - Tobacco Use Smoking Status *Q: Current Every Day Smoker Years of Tobacco use: 52 Packs/Tins Daily: 1 Used Tobacco, but Quit: No Second Hand Smoke Exposure: Yes - Caffeine Use Caffeine Use: Reports: None - Alcohol Use Days Per Week of Alcohol Use: 0 - Recreational Drug Use Recreational Drug Use: No - Living Situation & Occupation Living situation: Reports: , with Family Occupation: Retired ED ROS GENERAL - Review of Systems Review Of Systems: See Below Constitutional: Reports: Other (acute right flank pain) HEENT: Reports: No Symptoms Respiratory: Reports: No Symptoms Cardiovascular: Reports: No Symptoms Endocrine: Reports: No Symptoms GI/Abdominal: Reports: No Symptoms : Reports: Other (current self cath complication of prostate surgery) Musculoskeletal: Reports: Back Pain (chronic back pain, hx of spinal fusion.) Skin: Reports: No Symptoms Neurological: Reports: No Symptoms Psychiatric: Reports: No Symptoms Hematologic/Lymphatic: Reports: No Symptoms Immunologic: Reports: No Symptoms ED EXAM, GENERAL - Physical Exam Exam: See Below Exam Limited By: No Limitations General Appearance: Alert, WD/WN, Anxious, Moderate Distress Eye Exam: Bilateral Eye: Normal Inspection Ears: Normal External Exam, Normal Canal, Hearing Grossly Normal, Normal TMs Ear Exam: Bilateral Ear: Auricle Normal, Canal Normal, TM normal Nose: Normal Inspection, Normal Mucosa, No Blood Throat/Mouth: Normal Inspection, Normal Lips, Normal Teeth, Normal Gums, Normal Oropharynx, Normal Voice, No Airway Compromise Head: Atraumatic, Normocephalic Neck: Normal Inspection, Supple, Non-Tender, Full Range of Motion Respiratory/Chest: No Respiratory Distress, Lungs Clear, Normal Breath Sounds, No Accessory Muscle Use, Chest Non-Tender Cardiovascular: Normal Peripheral Pulses, Regular Rate, Rhythm, No Edema, No Murmur Peripheral Pulses: 2+: Brachial (L), Brachial (R), Dorsalis Pedis (L), Dorsalis Pedis (R) GI/Abdominal: Normal Bowel Sounds, Soft, Non-Tender, No Organomegaly, No Distention, No Abnormal Bruit, No Mass (Male) Exam: Deferred Rectal (Males) Exam: Deferred Back Exam: Normal Inspection, Full Range of Motion, CVA Tenderness (R), Muscle Spasm Extremities: Normal Inspection, Normal Range of Motion, Non-Tender, Normal Capillary Refill, No Pedal Edema Neurological: Alert, Oriented, CN II-XII Intact, Normal Cognition, Normal Gait, Normal Reflexes, No Motor/Sensory Deficits Psychiatric: Normal Affect, Normal Mood Skin Exam: Warm, Dry, Intact, Normal Color, No Rash Lymphatic: No Adenopathy Course - Vital Signs Last Recorded V/S: Last Vital Signs Temp 36.2 C 04/29/18 18:00 Pulse 69 04/29/18 18:00 Resp 18 04/29/18 18:00 BP 165/59 H 04/29/18 18:00 Pulse Ox 98 04/29/18 18:00 - Orders/Labs/Meds Orders: Active Orders 24 hr Category Date Time Status Kidney Stone Protocol [CT] Stat Exams 04/29/18 15:31 Taken Labs: Laboratory Tests 04/29/18 Range/Units 16:36 Urine Color Yellow Urine Appearance Clear Urine pH 5.0 (4.5-8.0) Ur Specific [place] 1.015 (1.008-1.030) Urine Protein Trace (NEGATIVE) mg/dL Urine Glucose (UA) Normal (NEGATIVE) mg/dL Urine Ketones Negative (NEGATIVE) mg/dL Urine Occult Blood Negative (NEGATIVE) Urine Nitrite Negative (NEGAITVE) Urine Bilirubin Negative (NEGATIVE) Urine Urobilinogen Normal (NORMAL) mg/dL Ur Leukocyte Esterase Negative (NEGATIVE) Urine RBC 0-5 (0-5) Urine WBC Not seen (0-5) Ur Epithelial Cells Rare Amorphous Sediment Rare Urine Bacteria Not seen Urine Mucus Not seen Meds: Medications Discontinued Medications Generic Name Dose Route Start Last Admin Trade Name Freq PRN Reason Stop Dose Admin Hydromorphone HCl 1 mg 04/29/18 15:30 04/29/18 15:54 Dilaudid IVPUSH 04/29/18 15:31 1 mg ONETIME ONE Administration Sodium Chloride 1,000 mls @ 999 mls/hr 04/29/18 15:30 04/29/18 15:52 Normal Saline IV 999 mls/hr ASDIRECTED SHANIA Administration Lorazepam 1 mg 04/29/18 16:31 04/29/18 17:00 Ativan IVPUSH 04/29/18 16:32 1 mg ONETIME ONE Administration Ondansetron HCl 4 mg 04/29/18 15:30 04/29/18 15:52 Zofran IVPUSH 04/29/18 15:31 4 mg ONETIME ONE Administration - Re-Assessments/Exams Free Text/Narrative Re-Assessment/Exam: 04/29/18 CT scan of abdomen pelvis negative for stones, Urine negative for blood given IV fluids and medication, pain resolving. ready for discharge to home. Departure - Departure Time of Disposition: 18:24 Disposition: Home, Self-Care 01 Condition: Good Clinical Impression: Acute back pain Qualifiers: Back pain location: thoracic back pain Back pain laterality: right Qualified Code(s): M54.6 - Pain in thoracic spine - Discharge Information *PRESCRIPTION DRUG MONITORING PROGRAM REVIEWED*: Not Applicable *COPY OF PRESCRIPTION DRUG MONITORING REPORT IN PATIENT TAMMIE: Not Applicable Instructions: Back Pain, Adult Referrals: PCP,None [Primary Care Provider] - Forms: ED Department Discharge Care Plan Goals: acute back pain -Percocet 5-325mg take one tablet every 4 to 6 hours as needed for pain -Flexeril 10mg take one tablet every 8 hours as needed for muscle spasm -avoid any bending,lifting over 10 pound, twisting of back for 3 to 5 days then increase activities as tolerated -follow up with [facility] for recheck Return to ER for any increased pain, nausea, vomiting, rash or not improved. copy and report of CT Abdomen-Pelvis, ua report given to Mr. Olivares for home records. call made to [facility] to report ER visit per Mr. Olivares request - Problem List & Annotations (1) Acute back pain SNOMED Code(s): 736184270, [id number] Code(s): M54.9 - DORSALGIA, UNSPECIFIED Status: Acute Qualifiers: Back pain location: thoracic back pain Back pain laterality: right Qualified Code(s): M54.6 - Pain in thoracic spine - Problem List Review Problem List Initiated/Reviewed/Updated: Yes - My Orders Last 24 Hours: My Active Orders 04/29/18 15:31 Kidney Stone Protocol [CT] Stat - Assessment/Plan Last 24 Hours: My Active Orders 04/29/18 15:31 Kidney Stone Protocol [CT] Stat Plan: acute back pain -Percocet 5-325mg take one tablet every 4 to 6 hours as needed for pain -Flexeril 10mg take one tablet every 8 hours as needed for muscle spasm -avoid any bending,lifting over 10 pound, twisting of back for 3 to 5 days then increase activities as tolerated -follow up with [facility] for recheck Return to ER for any increased pain, nausea, vomiting, rash or not improved. copy and report of CT Abdomen-Pelvis, ua report given to Mr. Olivares for home records. call made to [facility] to report ER visit per Mr. Olivares request, the [facility] reports Mr. Olivares will need to call back at 0800 tomorrow and ask to speak with [facility] [employer] [facility] to [facility] visit.
== END 2018-04-29 18:24 | disposition home or self-care (01) ==
LOC: JP.ED 15:19
DX: M54.6 Pain in thoracic spine (principal); I10 Essential (primary) hypertension; E78.00 Pure hypercholesterolemia, unspecified; Z88.8 Allergy status to other drugs, medicaments and biological substances; Z79.82 Long term (current) use of aspirin; Z79.899 Other long term (current) drug therapy
CPT/HCPCS: 74176; 81001; 96374; 96375; 99284; J1170; J2060; J2405; J7030

== ENCOUNTER 2018-11-11 17:27 | Emergency (ER) | payer MEDICARE ==
[2018-11-11] MEDS ORDERED: Albuterol/Ipratropium 3.0-0.5 MG/3 ML Neb Soln NEB ONE (18:03)
--- NOTE | 2018-11-11 18:27 | EDM.PDOC ---
ED HPI GENERAL MEDICAL PROBLEM - General Chief Complaint: Respiratory Problem Stated Complaint: SOB, CHEST PRESSURE Time Seen by Provider: 11/11/18 18:00 Source of Information: Reports: Patient, Family History Limitations: Reports: No Limitations - History of Present Illness INITIAL COMMENTS - FREE TEXT/NARRATIVE: 73-year-old male, smoker, who has COPD and a history of congestive heart failure developed a head cold 3 days ago and over the past 24 hours it has moved into his lungs causing a cough and shortness of breath. He had chills earlier today. Cough is nonproductive. He has mild body aches but no significant headache. He did get an influenza vaccine earlier. He has a nebulizer at home but is not using it. Onset: Gradual Duration: Day(s): (3 days) Associated Symptoms: Reports: Chest Pain (Chest pain with coughing), Cough, Fever/Chills, Malaise, Shortness of Breath chest from cough Pain Score (Numeric/FACES): 2 - Related Data Allergies Allergy/AdvReac Type Severity Reaction Status Date / Time chlorpromazine AdvReac Agitation Verified 11/11/18 18:04 [From Thorazine] sertraline [From Zoloft] AdvReac Agitation Verified 11/11/18 18:04 Home Meds: Home Meds hydrOXYzine HCl [hydrOXYzine] 50 mg PO QID 11/06/17 [History] traZODone 100 mg PO BEDTIME 11/06/17 [History] Pregabalin [Lyrica] 150 mg PO BID 11/18/17 [History] Albuterol Sulfate [Proventil Hfa] 1 puff INH Q4H PRN 11/19/17 [History] Albuterol/Ipratropium [DuoNeb 3.0-0.5 MG/3 ML] 3 ml NEB Q6H #120 neb 11/19/17 [ Rx] Aspirin 81 mg PO DAILY tab.chew 11/19/17 [Rx] Atropine/Diphenoxylate [Diphenoxylate-Atropine] 1 tab PO BID tablet 11/19/17 [ Rx] Lisinopril 20 mg PO DAILY 04/29/18 [History] Past Medical History HEENT History: Reports: Impaired Vision, Other (See Below) Other HEENT History: partial dentures Cardiovascular History: Reports: Aneurysm, Blood Clots/VTE/DVT, High Cholesterol , Hypertension Respiratory History: Reports: COPD, Pneumonia, Recurrent Gastrointestinal History: Reports: Irritable Bowel Syndrome Genitourinary History: Reports: Prostate Disorder Musculoskeletal History: Reports: Back Pain, Chronic Neurological History: Reports: Head Trauma Psychiatric History: Reports: Anxiety, Depression, PTSD Endocrine/Metabolic History: Reports: Other (See Below) Other Endocrine/Metabolic History: on hormone shots Hematologic History: Reports: Blood Transfusion(s) Oncologic (Cancer) History: Reports: Prostate - Infectious Disease History Infectious Disease History: Reports: Chicken Pox, Measles, Mumps - Past Surgical History Cardiovascular Surgical History: Reports: AAA Repair, Other (See Below) Other Cardiovascular Surgeries/Procedures: aortic aneurysm- fixed in 2016 Respiratory Surgical History: Reports: None GI Surgical History: Reports: None Male Surgical History: Reports: Prostatectomy Neurological Surgical History: Reports: Lumbar Spine, Other (See Below) Other Neurological Surgeries/Procedures: rods placed in back, patient states, " i dont know what they did but they put rods in my back." Musculoskeletal Surgical History: Reports: Arthroscopic Knee, Other (See Below) Other Musculoskeletal Surgeries/Procedures:: back surgery. knee surgery left knee Social & Family History - Tobacco Use Smoking Status *Q: Current Every Day Smoker Years of Tobacco use: 53 Packs/Tins Daily: 0.5 - Caffeine Use Caffeine Use: Reports: None - Recreational Drug Use Recreational Drug Use: No - Living Situation & Occupation Living situation: Reports: , with Family Occupation: Retired ED ROS GENERAL - Review of Systems Review Of Systems: See Below Constitutional: Reports: Fever, Chills, Malaise, Weakness HEENT: Denies: Ear Pain, Throat Pain Respiratory: Reports: Shortness of Breath, Cough. Denies: Sputum Cardiovascular: Reports: Chest Pain (With coughing) GI/Abdominal: Denies: Abdominal Pain, Nausea, Vomiting : Reports: No Symptoms Musculoskeletal: Reports: Muscle Pain (Generalized muscle pain) Skin: Reports: No Symptoms Neurological: Denies: Headache Psychiatric: Reports: No Symptoms ED EXAM, GENERAL - Physical Exam Exam: See Below Exam Limited By: No Limitations General Appearance: Alert, No Apparent Distress Eye Exam: Bilateral Eye: Normal Inspection Throat/Mouth: Normal Inspection Head: Atraumatic Respiratory/Chest: No Respiratory Distress, Wheezing (Diffuse inspiratory and x- ray wheezing is heard, a few rales on the right base) Cardiovascular: Regular Rate, Rhythm GI/Abdominal: Non-Tender Extremities: Normal Inspection. No: Pedal Edema Neurological: Alert, Oriented Psychiatric: Normal Affect, Normal Mood Course - Vital Signs Last Recorded V/S: Last Vital Signs Temp 95.6 F 11/11/18 17:55 Pulse 100 11/11/18 18:19 Resp 18 11/11/18 18:19 BP 124/61 11/11/18 18:19 Pulse Ox 96 11/11/18 18:19 - Orders/Labs/Meds Orders: Active Orders 24 hr Category Date Time Status RT Aerosol Therapy [RC] ASDIRECTED Care 11/11/18 18:03 Active Meds: Medications Discontinued Medications Generic Name Dose Route Start Last Admin Trade Name Freq PRN Reason Stop Dose Admin Albuterol/Ipratropium 3 ml 11/11/18 18:03 11/11/18 18:18 Duoneb 3.0-0.5 Mg/3 Ml NEB 11/11/18 18:04 3 ml ONETIME ONE Administration - Re-Assessments/Exams Free Text/Narrative Re-Assessment/Exam: 11/11/18 18:27 Patient was given a DuoNeb, followed by influenza antigens and a two-view chest x-ray. 11/11/18 18:53 Influenza is were negative. Chest x-ray showed mild bronchitis changes but no infiltrate, no effusion or CHF. After the DuoNeb the patient was markedly improved objectively and subjectively, O2 sats are 99% on room air. He'll be discharged with prednisone 50 mg daily for 6 days, a course of Zithromax, and informed to use his nebulizer several times daily until he improves. He can return at any time if worsening. Departure - Departure Time of Disposition: 19:10 Disposition: Home, Self-Care 01 Condition: Good Clinical Impression: Bronchitis Reactive airway disease Qualifiers: Asthma severity: moderate Asthma persistence: persistent Asthma complication type: uncomplicated Qualified Code(s): J45.40 - Moderate persistent asthma, uncomplicated - Discharge Information Instructions: Acute Bronchitis, Adult, [id number] Referrals: Finn Tineo MD [Primary Care Provider] - Forms: ED Department Discharge Care Plan Goals: Take 5 pills of prednisone with food daily for the next 6 days, take all 5 at one time. The first meal of the day is the best time. Take course of Zithromax as prescribed starting tonight. Use your nebulizer several times daily if needed , and return anytime if worsening despite medical treatment. - My Orders Last 24 Hours: My Active Orders 11/11/18 18:03 RT Aerosol Therapy [RC] ASDIRECTED - Assessment/Plan Last 24 Hours: My Active Orders 11/11/18 18:03 RT Aerosol Therapy [RC] ASDIRECTED
--- NOTE | 2018-11-11 18:45 | CRLCR ---
Indication: Dyspnea. Technique: PA and lateral view of the chest were obtained. Comparison: November 06, 2017. Findings: The heart is normal in size. The lungs are hyperinflated. No infiltrate, pleural effusion, or pneumothorax is identified. Impression: Hyperinflation. Dictated by Shilpi Bautista MD @ Nov 11 2018 6:43PM Signed by Dr. Shilpi Bautista @ Nov 11 2018 6:43PM
== END 2018-11-11 19:11 | disposition home or self-care (01) ==
LOC: JP.ED 17:27
DX: J45.40 Moderate persistent asthma, uncomplicated (principal); J40 Bronchitis, not specified as acute or chronic; F17.210 Nicotine dependence, cigarettes, uncomplicated; I10 Essential (primary) hypertension; E78.00 Pure hypercholesterolemia, unspecified; F41.9 Anxiety disorder, unspecified; F32.9 Major depressive disorder, single episode, unspecified; Z79.82 Long term (current) use of aspirin; Z79.899 Other long term (current) drug therapy; Z88.8 Allergy status to other drugs, medicaments and biological substances
CPT/HCPCS: 71046; 87804; 87804-59; 94640; 99285-25; J7620-GY

== ENCOUNTER 2022-08-26 13:32 | Emergency (ER) | payer MEDICARE, OTHER | END 2022-08-26 15:03 | disposition home or self-care (01) | LOC: JP.ED 13:32 | DX: H66.002 Acute suppurative otitis media without spontaneous rupture of ear drum, left ear (principal); J44.9 Chronic obstructive pulmonary disease, unspecified; I10 Essential (primary) hypertension; Z88.8 Allergy status to other drugs, medicaments and biological substances; Z79.899 Other long term (current) drug therapy; Z79.82 Long term (current) use of aspirin; Z72.0 Tobacco use | CPT/HCPCS: 99282 ==

== ENCOUNTER 2023-01-08 16:35 | Emergency (ER) | payer MEDICARE, OTHER ==
[2023-01-08] MEDS ORDERED: Sodium Chloride 0.9% 10 ML Syringe FLUSH PRN (16:44)
[2023-01-08 16:59] LABS: BASOPHILS ABSOLUTE AUTO 0.08 K/uL (0.00-0.10); BASOPHILS PERCENT AUTO 1.1 % (0.1-1.3); EOSINOPHILS PERCENT AUTO 1.4 % (0.0-5.4); HEMATOCRIT 51.2 % (38.4-49.7); HEMOGLOBIN 17.4 g/dL (12.9-16.9); IMMATURE GRAN ABSOLUTE AUTO 0.02 K/uL (0.00-0.23); IMMATURE GRAN PERCENT AUTO 0.3 % (0.0-0.7); LYMPHOCYTES ABSOLUTE AUTO 1.92 K/uL (0.8-3.3); LYMPHOCYTES PERCENT AUTO 26.4 % (11.4-47.7); MEAN CORPUSCULAR HEMOGLOBIN 30.5 pg (31.6-35.5); MEAN CORPUSCULAR VOLUME 89.7 fL (81.4-99.0); MONOCYTES ABSOLUTE AUTO 0.49 K/uL (0.20-0.90); MONOCYTES PERCENT AUTO 6.7 % (3.3-12.6); NEUTROPHILS ABSOLUTE AUTO 4.66 K/uL (1.0-7.6); NEUTROPHILS PERCENT AUTO 64.1 % (40.0-78.1); PLATELET COUNT,PLT 132 K/uL (130-375); RED BLOOD CELL COUNT 5.71 M/uL (4.14-5.76); WHITE BLOOD CELL COUNT,WBC 7.3 K/uL (3.2-11.0)
[2023-01-08] MEDS ORDERED: Sodium Chloride 0.9% 1,000 ML IV SCH (17:15)
[2023-01-08] MEDS ORDERED: Ketorolac 30 MG/ML SDV IVPUSH ONE (17:15)
[2023-01-08 17:17] LABS: PROTHROMBIN TIME 10.4 sec (9.2-10.6); PTT,PARTIAL THROMBOPLSTIN TIME 23.9 sec (21.8-27.3)
[2023-01-08 17:20] LABS: A/G RATIO 0.9 (1.2-2.2); ALANINE AMINOTRANSFERASE,ALT 20 U/L (12-78); ALBUMIN 3.3 g/dL (3.4-5.0); ALKALINE PHOSPHATASE 88 U/L (46-116); ASPARTATE AMNIOTRANSFERASE,AST 20 U/L (15-37); BILIRUBIN TOTAL 0.6 mg/dL (0.2-1.0); BLOOD UREA NITROGEN,BUN 13 mg/dL (7-18); CALCIUM 8.6 mg/dL (8.5-10.1); CARBON DIOXIDE,CO2 27 mmol/L (21-32); CHLORIDE,CL 102 mmol/L (100-108); CREATININE 1.2 mg/dL (0.8-1.3); ESTIMATED GFR 63 mL/min (>60); GLUCOSE RANDOM 101 mg/dL (74-106); PROTEIN TOTAL,TP 6.9 g/dL (6.4-8.2); SODIUM,NA 138 mmol/L (140-148); TROPONIN I HIGH SENSITIVITY 10.8 pg/mL (<=60.3)
[2023-01-08] MEDS ORDERED: Meclizine 25 MG Tab PO ONE (19:02)
[2023-01-08 19:34] LABS: APPEARANCE,URINE CLOUDY (CLEAR); BILIRUBIN,URINE NEGATIVE (NEGATIVE); COLOR,URINE YELLOW (YELLOW); GLUCOSE,URINE NEGATIVE (NEGATIVE); KETONES,URINE NEGATIVE (NEGATIVE); LEUKOCYTE ESTERASE,URINE TRACE (NEGATIVE); NITRITE,URINE NEGATIVE (NEGATIVE); OCCULT BLOOD,URINE LARGE (NEGATIVE); PH,URINE 5.5 (5.0-8.0); PROTEIN,URINE NEGATIVE (NEGATIVE)
[2023-01-08 19:39] LABS: AMORPHOUS SEDIMENT,URINE NOT SEEN; BACTERIA,URINE RARE; EPITHELIAL CELLS,URINE RARE; MUCUS,URINE NOT SEEN; RBC,URINE PACKED (0-5); WBC,URINE 0-5 (0-5)
== END 2023-01-08 20:26 | disposition home or self-care (01) ==
LOC: JP.ED 16:35
DX: R53.1 Weakness (principal); H53.9 Unspecified visual disturbance; J44.9 Chronic obstructive pulmonary disease, unspecified; E78.00 Pure hypercholesterolemia, unspecified; I10 Essential (primary) hypertension; Z88.8 Allergy status to other drugs, medicaments and biological substances; Z79.82 Long term (current) use of aspirin; Z79.899 Other long term (current) drug therapy
CPT/HCPCS: 36415; 70450; 80053; 81001; 82947; 84484; 85025; 85610; 85730; 93005; 96361; 96374; 99285; A9270; J1885; J3490; J7030

== ENCOUNTER 2023-01-15 09:21 | Inpatient (IN) | payer OTHER ==
[2023-01-15] MEDS ORDERED: Dexamethasone 4 MG/ML SDV IVPUSH STA ×2 (10:21→18:25)
[2023-01-15] MEDS ORDERED: diphenhydrAMINE 50 MG/ML SDV IVPUSH ONE (10:21)
[2023-01-15] MEDS ORDERED: Ketorolac 15 MG/ML SDV IVPUSH ONE (10:21)
[2023-01-15] MEDS ORDERED: Metoclopramide 10 MG/2 ML SDV IVPUSH ONE (10:23)
[2023-01-15 10:28] LABS: ALANINE AMINOTRANSFERASE,ALT 24 U/L (12-78); ALBUMIN 3.2 g/dL (3.4-5.0); ALKALINE PHOSPHATASE 93 U/L (46-116); ANION GAP 8.6 mmol/L (5.0-14.0); ASPARTATE AMNIOTRANSFERASE,AST 23 U/L (15-37); BILIRUBIN TOTAL 0.7 mg/dL (0.2-1.0); BLOOD UREA NITROGEN,BUN 15 mg/dL (7-18); CARBON DIOXIDE,CO2 32 mmol/L (21-32); CHLORIDE,CL 103 mmol/L (100-108); CREATININE 1.2 mg/dL (0.8-1.3); EST CRCL DRUG DOSING (CG) 56.65 mL/min; ESTIMATED GFR 63 mL/min (>60); GLUCOSE RANDOM 100 mg/dL (74-106); POTASSIUM,K 4.6 mmol/L (3.6-5.2); PROTEIN TOTAL,TP 6.4 g/dL (6.4-8.2); SODIUM,NA 139 mmol/L (140-148)
[2023-01-15 10:30] LABS: BASOPHILS ABSOLUTE AUTO 0.11 K/uL (0.00-0.10); BASOPHILS PERCENT AUTO 1.5 % (0.1-1.3); EOSINOPHILS ABSOLUTE AUTO 0.24 K/uL (0.00-0.40); EOSINOPHILS PERCENT AUTO 3.2 % (0.0-5.4); HEMATOCRIT 52.4 % (38.4-49.7); HEMOGLOBIN 17.3 g/dL (12.9-16.9); IMMATURE GRAN ABSOLUTE AUTO 0.03 K/uL (0.00-0.23); IMMATURE GRAN PERCENT AUTO 0.4 % (0.0-0.7); LYMPHOCYTES PERCENT AUTO 25.2 % (11.4-47.7); MEAN CORPUSCULAR HEMOGLOBIN 30.5 pg (31.6-35.5); MEAN CORPUSCULAR VOLUME 92.4 fL (81.4-99.0); MONOCYTES ABSOLUTE AUTO 0.65 K/uL (0.20-0.90); MONOCYTES PERCENT AUTO 8.6 % (3.3-12.6); NEUTROPHILS ABSOLUTE AUTO 4.61 K/uL (1.0-7.6); NEUTROPHILS PERCENT AUTO 61.1 % (40.0-78.1); PLATELET COUNT,PLT 109 K/uL (130-375); RED BLOOD CELL COUNT 5.67 M/uL (4.14-5.76); WHITE BLOOD CELL COUNT,WBC 7.5 K/uL (3.2-11.0)
[2023-01-15] MEDS ORDERED: Sodium Chloride 0.9% 1,000 ML IV SCH (10:30)
[2023-01-15 10:39] LABS: PROTHROMBIN TIME 9.9 sec (9.2-10.6); PTT,PARTIAL THROMBOPLSTIN TIME 22.3 sec (21.8-27.3)
[2023-01-15] MEDS: Loperamide 2 MG Cap PO PRN ×2 (11:38→20:43)
[2023-01-15] MEDS ORDERED: cloNIDine 0.1 MG Tab PO SCH (11:45)
[2023-01-15] MEDS ORDERED: Labetalol 20 MG/4 ML Syringe IVPUSH ONE (15:55)
[2023-01-15] MEDS ORDERED: hydrALAZINE 20 MG/ML SDV IVPUSH PRN (15:56)
[2023-01-15] MEDS ORDERED: HYDROmorphone 1 MG/ML Syringe IVPUSH ONE (16:18)
[2023-01-15] MEDS ORDERED: Labetalol 100 MG/20 ML MDV ONE (16:25)
[2023-01-15] MEDS: Labetalol 100 MG in Sodium Chloride 0.9% 80 ML IV SCH ×3 (16:51→22:08)
[2023-01-15] MEDS ORDERED: Ondansetron 4 MG/2 ML SDV IV PRN (19:11)
[2023-01-15] MEDS ORDERED: HYDROmorphone 0.5 MG/0.5 ML Syringe IVPUSH PRN (19:11)
[2023-01-15] MEDS ORDERED: Sennosides/Docusate Sodium 50-8.6 MG Tab PO PRN (19:11)
[2023-01-15] MEDS ORDERED: Magnesium Hydroxide 400 MG/5 ML Susp 30 ML Cup PO PRN (19:11)
[2023-01-15] MEDS ORDERED: Ondansetron 4 MG Tab.DIS PO PRN (19:11)
[2023-01-15] MEDS ORDERED: Acetaminophen 325 MG Tab PO PRN (19:11)
[2023-01-15] MEDS ORDERED: Nicotine 14 MG/24 Hr Patch TRDERM PRN (19:11)
[2023-01-15] MEDS ORDERED: Hypromellose 0.3% Ophth Soln 15 ML Bottle EYEBOTH PRN (19:15)
[2023-01-15] MEDS ORDERED: [UNRECOGNIZED DRUG - OTHER] BC PRN (19:15)
[2023-01-15] MEDS ORDERED: hydrOXYzine HCl 25 MG Tab PO PRN (19:15)
[2023-01-15] MEDS ORDERED: Albuterol 6.7 GM Inhaler INH PRN (19:15)
[2023-01-15] MEDS ORDERED: Lidocaine 5% 700 MG Patch TOP SCH (19:15)
[2023-01-15] MEDS ORDERED: Enoxaparin 40 MG/0.4 ML Syringe SUBCUT SCH (20:00)
[2023-01-15] MEDS ORDERED: Formoterol/Mometasone 200-5 MCG 8.8 GM Inhaler IH SCH (20:00)
[2023-01-15] MEDS: Lisinopril 10 MG Tab PO SCH (20:40)
[2023-01-15] MEDS: Albuterol/Ipratropium 3.0-0.5 MG/3 ML Neb Soln NEB SCH (20:41)
[2023-01-15] MEDS: Hydrochlorothiazide 25 MG Tab PO SCH (20:43)
[2023-01-15] MEDS ORDERED: Melatonin 3 MG Tab PO SCH (21:00)
[2023-01-15] MEDS ORDERED: Pravastatin 20 MG Tab PO SCH (21:00)
[2023-01-15] MEDS ORDERED: Labetalol 100 MG Tab PO SCH (21:00)
[2023-01-15] MEDS ORDERED: Mirtazapine 15 MG Tab PO SCH (21:00)
[2023-01-15] MEDS: traZODone 50 MG Tab PO SCH (21:05)
[2023-01-15] MEDS: Pregabalin 100 MG Cap PO SCH (21:06)
[2023-01-15] MEDS: ClonazePAM 0.5 MG Tab PO SCH (21:06)
[2023-01-15] MEDS: hydrOXYzine HCl 25 MG Tab PO SCH (21:24)
[2023-01-15] MEDS: Atropine/Diphenoxylate 0.025-2.5 MG Tab PO PRN (21:26)
[2023-01-15] MEDS ORDERED: Sodium Chloride 0.9% 100 ML ONE (21:46)
[2023-01-15] MEDS: Labetalol 20 MG/4 ML Syringe ONE ×2 (21:58→22:06)
[2023-01-15] MEDS: hydrALAZINE 10 MG Tab PO SCH (22:16)
[2023-01-15] MEDS: oxyCODONE 5 MG Tab PO PRN (23:23)
[2023-01-16] MEDS: Albuterol/Ipratropium 3.0-0.5 MG/3 ML Neb Soln NEB SCH ×4 (03:15→20:08)
[2023-01-16] MEDS: oxyCODONE 5 MG Tab PO PRN ×4 (04:49→22:47)
[2023-01-16] MEDS: Atropine/Diphenoxylate 0.025-2.5 MG Tab PO PRN ×3 (06:10→23:41)
[2023-01-16] MEDS: Loperamide 2 MG Cap PO PRN ×4 (06:10→23:41)
[2023-01-16] MEDS: Formoterol/Mometasone 200-5 MCG 8.8 GM Inhaler IH SCH ×2 (08:19→20:08)
[2023-01-16] MEDS: Thiamine 100 MG Tab PO SCH (08:48)
[2023-01-16] MEDS: Hydrochlorothiazide 25 MG Tab PO SCH ×2 (08:50→15:25)
[2023-01-16] MEDS: Pravastatin 20 MG Tab PO SCH (08:51)
[2023-01-16] MEDS: hydrOXYzine HCl 25 MG Tab PO SCH ×3 (08:51→20:06)
[2023-01-16] MEDS: hydrALAZINE 10 MG Tab PO SCH ×3 (08:52→20:07)
[2023-01-16] MEDS: Lisinopril 10 MG Tab PO SCH (08:53)
[2023-01-16] MEDS: Multivitamins with Iron/Calcium/Folic Acid/Minerals Tab PO SCH (08:54)
[2023-01-16] MEDS: Folic Acid 1 MG Tab PO SCH (08:54)
[2023-01-16] MEDS: Cyanocobalamin (Vitamin B12) 1,000 MCG Tab PO SCH (08:54)
[2023-01-16] MEDS: predniSONE 20 MG Tab PO SCH (08:55)
[2023-01-16] MEDS: Pregabalin 100 MG Cap PO SCH ×2 (09:00→20:04)
[2023-01-16] MEDS ORDERED: Ketorolac 30 MG/ML SDV IVPUSH ONE (12:30)
[2023-01-16] MEDS: traZODone 50 MG Tab PO SCH (20:07)
[2023-01-16] MEDS: ClonazePAM 0.5 MG Tab PO SCH (20:07)
[2023-01-16] MEDS ORDERED: Enoxaparin 40 MG/0.4 ML Syringe SUBCUT SCH (21:00)
[2023-01-17] MEDS: Albuterol/Ipratropium 3.0-0.5 MG/3 ML Neb Soln NEB SCH ×2 (01:38→07:44)
[2023-01-17] MEDS: oxyCODONE 5 MG Tab PO PRN (04:28)
[2023-01-17] MEDS: Atropine/Diphenoxylate 0.025-2.5 MG Tab PO PRN (05:47)
[2023-01-17] MEDS: Loperamide 2 MG Cap PO PRN (05:47)
[2023-01-17] MEDS: Lisinopril 10 MG Tab PO SCH (08:01)
[2023-01-17] MEDS: Pravastatin 20 MG Tab PO SCH (08:02)
[2023-01-17] MEDS: Hydrochlorothiazide 25 MG Tab PO SCH (08:03)
[2023-01-17] MEDS: hydrOXYzine HCl 25 MG Tab PO SCH (08:04)
[2023-01-17] MEDS: Cyanocobalamin (Vitamin B12) 1,000 MCG Tab PO SCH (08:04)
[2023-01-17] MEDS: Multivitamins with Iron/Calcium/Folic Acid/Minerals Tab PO SCH (08:05)
[2023-01-17] MEDS: Thiamine 100 MG Tab PO SCH (08:05)
[2023-01-17] MEDS: Folic Acid 1 MG Tab PO SCH (08:05)
[2023-01-17] MEDS: predniSONE 20 MG Tab PO SCH (08:05)
[2023-01-17] MEDS: hydrALAZINE 10 MG Tab PO SCH (08:06)
[2023-01-17] MEDS: Pregabalin 100 MG Cap PO SCH (08:10)
[2023-01-17] MEDS: Formoterol/Mometasone 200-5 MCG 8.8 GM Inhaler IH SCH (08:45)
[2023-01-17] MEDS ORDERED: cloNIDine 0.1 MG Tab PO ONE (08:48)
== END 2023-01-17 09:45 | disposition left against medical advice (07) | DRG 305 ==
LOC: JP.ED 09:21 → JP.ICU 19:11 → UNDOADMIN 19:11
PROVIDERS: ADMIT Internal Medicine; ATTEND Internal Medicine
DX: I16.0 Hypertensive urgency (principal); I16.1 Hypertensive emergency; G43.011 Migraine without aura, intractable, with status migrainosus; Z20.822 Contact with and (suspected) exposure to COVID-19; J44.9 Chronic obstructive pulmonary disease, unspecified; G43.909 Migraine, unspecified, not intractable, without status migrainosus; E78.00 Pure hypercholesterolemia, unspecified; G89.29 Other chronic pain; M54.9 Dorsalgia, unspecified; Z87.820 Personal history of traumatic brain injury; F32.A Depression, unspecified; H54.7 Unspecified visual loss; M54.50 Low back pain, unspecified; G83.84 Todd's paralysis (postepileptic); F41.9 Anxiety disorder, unspecified; F17.210 Nicotine dependence, cigarettes, uncomplicated; F43.10 Post-traumatic stress disorder, unspecified; Z79.82 Long term (current) use of aspirin; Z79.899 Other long term (current) drug therapy; Z88.8 Allergy status to other drugs, medicaments and biological substances; Z86.718 Personal history of other venous thrombosis and embolism; Z98.890 Other specified postprocedural states
CPT/HCPCS: 36415; 70450; 80053; 82607; 85025; 85610; 85730; 86140; 94640; 96374; 96375; 96376; 97116-GP; 97162-GP; 97530-GP; 99221; 99232; 99239; 99285; 99285-25; A9270-GY; J1100; J1170; J1200; J1650; J1885; J2765; J3490; J7030; J7512; J7620; U0002

== ENCOUNTER 2023-09-28 11:12 | Emergency (ER) | payer OTHER, MEDICARE ==
[2023-09-28 13:09] LABS: BASOPHILS ABSOLUTE AUTO 0.07 K/uL (0.00-0.10); EOSINOPHILS PERCENT AUTO 2.7 % (0.0-5.4); HEMATOCRIT 38.4 % (38.4-49.7); IMMATURE GRAN PERCENT AUTO 0.1 % (0.0-0.7); LYMPHOCYTES ABSOLUTE AUTO 1.34 K/uL (0.8-3.3); LYMPHOCYTES PERCENT AUTO 18.3 % (11.4-47.7); MEAN CORPUSCULAR HEMOGLOBIN 27.5 pg (31.6-35.5); MEAN CORPUSCULAR HGB CONC 31.3 g/dL (31.6-35.5); MEAN CORPUSCULAR VOLUME 87.9 fL (81.4-99.0); MONOCYTES ABSOLUTE AUTO 0.52 K/uL (0.20-0.90); MONOCYTES PERCENT AUTO 7.1 % (3.3-12.6); NEUTROPHILS ABSOLUTE AUTO 5.17 K/uL (1.0-7.6); NEUTROPHILS PERCENT AUTO 70.8 % (40.0-78.1); PLATELET COUNT,PLT 130 K/uL (130-375); RED BLOOD CELL COUNT 4.37 M/uL (4.14-5.76); WHITE BLOOD CELL COUNT,WBC 7.3 K/uL (3.2-11.0)
[2023-09-28 13:10] LABS: IMMATURE GRAN ABSOLUTE AUTO 0.01 K/uL (0.00-0.23)
[2023-09-28] MEDS ORDERED: Sodium Chloride 0.9% 100 ML IV SCH (13:15)
[2023-09-28] MEDS ORDERED: Iopamidol 755 Mg/ML 100 ML Bottle IV SCH (13:15)
[2023-09-28 13:16] LABS: PROTHROMBIN TIME 10.4 sec (9.2-10.6)
[2023-09-28 13:28] LABS: A/G RATIO 0.9 (1.2-2.2); ALANINE AMINOTRANSFERASE,ALT 23 U/L (12-78); ALBUMIN 3.3 g/dL (3.4-5.0); ALKALINE PHOSPHATASE 118 U/L (46-116); ANION GAP 4.1 mmol/L (5.0-14.0); ASPARTATE AMNIOTRANSFERASE,AST 18 U/L (15-37); BILIRUBIN TOTAL 0.5 mg/dL (0.2-1.0); BLOOD UREA NITROGEN,BUN 17 mg/dL (7-18); CALCIUM 8.9 mg/dL (8.5-10.1); CARBON DIOXIDE,CO2 32 mmol/L (21-32); CHLORIDE,CL 105 mmol/L (100-108); CREATININE 1.1 mg/dL (0.8-1.3); EST CRCL DRUG DOSING (CG) 59.91 mL/min; ESTIMATED GFR 70 mL/min (>60); GLUCOSE RANDOM 113 mg/dL (74-106); POTASSIUM,K 4.1 mmol/L (3.6-5.2); PROTEIN TOTAL,TP 7.1 g/dL (6.4-8.2); SODIUM,NA 141 mmol/L (140-148); TROPONIN I HIGH SENSITIVITY 9.9 pg/mL (<=60.3)
[2023-09-28] MEDS: Sodium Chloride 0.9% 10 ML Syringe FLUSH PRN (14:12)
== END 2023-09-28 16:43 | disposition home or self-care (01) ==
LOC: JP.ED 11:12
DX: R20.0 Anesthesia of skin (principal); I63.9 Cerebral infarction, unspecified; I10 Essential (primary) hypertension; J44.9 Chronic obstructive pulmonary disease, unspecified; Z87.891 Personal history of nicotine dependence; Z79.01 Long term (current) use of anticoagulants; Z79.82 Long term (current) use of aspirin; Z79.899 Other long term (current) drug therapy; Z88.8 Allergy status to other drugs, medicaments and biological substances
CPT/HCPCS: 36415; 70450; 70496; 70498; 80053; 83605; 84484; 85025; 85610; 85730; 93005; 99285; J3490; 82947

== ENCOUNTER 2024-01-15 11:13 | Inpatient (IN) | payer OTHER, MEDICARE ==
[2024-01-15 11:35] LABS: BASOPHILS ABSOLUTE AUTO 0.05 K/uL (0.00-0.10); BASOPHILS PERCENT AUTO 0.5 % (0.1-1.3); EOSINOPHILS ABSOLUTE AUTO 0.07 K/uL (0.00-0.40); EOSINOPHILS PERCENT AUTO 0.6 % (0.0-5.4); HEMATOCRIT 36.2 % (38.4-49.7); HEMOGLOBIN 11.8 g/dL (12.9-16.9); IMMATURE GRAN ABSOLUTE AUTO 0.04 K/uL (0.00-0.23); IMMATURE GRAN PERCENT AUTO 0.4 % (0.0-0.7); LYMPHOCYTES ABSOLUTE AUTO 0.79 K/uL (0.8-3.3); LYMPHOCYTES PERCENT AUTO 7.1 % (11.4-47.7); MEAN CORPUSCULAR HEMOGLOBIN 30.2 pg (31.6-35.5); MEAN CORPUSCULAR HGB CONC 32.6 g/dL (31.6-35.5); MEAN CORPUSCULAR VOLUME 92.6 fL (81.4-99.0); MONOCYTES ABSOLUTE AUTO 0.78 K/uL (0.20-0.90); MONOCYTES PERCENT AUTO 7.1 % (3.3-12.6); NEUTROPHILS ABSOLUTE AUTO 9.32 K/uL (1.0-7.6); NEUTROPHILS PERCENT AUTO 84.3 % (40.0-78.1); PLATELET COUNT,PLT 141 K/uL (130-375); RED BLOOD CELL COUNT 3.91 M/uL (4.14-5.76); WHITE BLOOD CELL COUNT,WBC 11.1 K/uL (3.2-11.0)
[2024-01-15] MEDS: Albuterol/Ipratropium 3.0-0.5 MG/3 ML Neb Soln NEB ONE (11:35)
[2024-01-15 11:38] LABS: BASE EXCESS ARTERIAL 4.5 mm/L; BICARBONATE,ARTERIAL 32.1 mmol/L (22.0-26.0); METHEMOGLOBIN 0.6 %; OXYHEMOGLOBIN 73.5 %; PCO2 ARTERIAL 65.4 mmHg (35.0-42.0); TOTAL HEMOGLOBIN 12.3 g/dL (13.5-18.0)
[2024-01-15 11:41] LABS: PO2 ARTERIAL 44.5 mmHg (75.0-100.0)
[2024-01-15 11:42] LABS: O2 SATURATION ARTERIAL 76.2 % (95.0-98.0)
[2024-01-15 11:54] LABS: INR 1.1; PROTHROMBIN TIME 10.7 sec (9.2-10.6)
[2024-01-15 12:02] LABS: A/G RATIO 0.7 (1.2-2.2); ALANINE AMINOTRANSFERASE,ALT 22 U/L (12-78); ALBUMIN 2.8 g/dL (3.4-5.0); ALKALINE PHOSPHATASE 113 U/L (46-116); ASPARTATE AMNIOTRANSFERASE,AST 26 U/L (15-37); BILIRUBIN TOTAL 0.4 mg/dL (0.2-1.0); BLOOD UREA NITROGEN,BUN 14 mg/dL (7-18); CALCIUM 8.2 mg/dL (8.5-10.1); CARBON DIOXIDE,CO2 32 mmol/L (21-32); CHLORIDE,CL 102 mmol/L (100-108); CREATININE 1.1 mg/dL (0.8-1.3); EST CRCL DRUG DOSING (CG) 58.99 mL/min; ESTIMATED GFR 70 mL/min (>60); GLUCOSE RANDOM 140 mg/dL (74-106); MAGNESIUM 1.9 mg/dL (1.8-2.4); POTASSIUM,K 4.7 mmol/L (3.6-5.2); PROTEIN TOTAL,TP 6.9 g/dL (6.4-8.2); SODIUM,NA 138 mmol/L (140-148); TROPONIN I HIGH SENSITIVITY 14.7 pg/mL (<=60.3)
[2024-01-15 12:03] LABS: ANION GAP 8.7 mmol/L (5.0-14.0)
[2024-01-15] MEDS: Albuterol/Ipratropium 3.0-0.5 MG/3 ML Neb Soln ONE (12:38)
[2024-01-15 13:08] LABS: BASE EXCESS ARTERIAL 3.9 mm/L; BICARBONATE,ARTERIAL 29.9 mmol/L (22.0-26.0); CARBOXYHEMOGLOBIN 2.3 % (0.0-1.6); METHEMOGLOBIN 0.7 %; O2 SATURATION ARTERIAL 97.1 % (95.0-98.0); OXYHEMOGLOBIN 94.2 %; PCO2 ARTERIAL 53.7 mmHg (35.0-42.0); PO2 ARTERIAL 88.5 mmHg (75.0-100.0); TOTAL HEMOGLOBIN 12.2 g/dL (13.5-18.0)
[2024-01-15] MEDS ORDERED: Azithromycin 500 MG in Sodium Chloride 0.9% 250 ML IV ONE (13:44)
[2024-01-15] MEDS ORDERED: cefTRIAXone 1 GM Vial IVPUSH SCH (13:45)
[2024-01-15] MEDS: cefTRIAXone 1 GM in Sodium Chloride 0.9% 50 ML IV ONE (14:28)
[2024-01-15] MEDS: Azithromycin 500 MG in Sodium Chloride 0.9% 250 ML IV ONE (14:28)
[2024-01-15] MEDS ORDERED: Ondansetron 4 MG/2 ML SDV IV PRN (15:41)
[2024-01-15] MEDS ORDERED: Nicotine 14 MG/24 Hr Patch TRDERM PRN (15:41)
[2024-01-15] MEDS ORDERED: Magnesium Hydroxide 400 MG/5 ML Susp 30 ML Cup PO PRN (15:41)
[2024-01-15] MEDS ORDERED: Sennosides/Docusate Sodium 50-8.6 MG Tab PO PRN (15:41)
[2024-01-15] MEDS ORDERED: Albuterol 0.083% 2.5 MG/3 ML Neb Soln NEB PRN (15:41)
[2024-01-15] MEDS ORDERED: Ondansetron 4 MG Tab.DIS PO PRN (15:41)
[2024-01-15 15:58] LABS: APPEARANCE,URINE CLOUDY (CLEAR); BILIRUBIN,URINE SMALL (NEGATIVE); COLOR,URINE YELLOW (YELLOW); GLUCOSE,URINE NEGATIVE (NEGATIVE); KETONES,URINE NEGATIVE (NEGATIVE); LEUKOCYTE ESTERASE,URINE SMALL (NEGATIVE); NITRITE,URINE POSITIVE (NEGATIVE); OCCULT BLOOD,URINE TRACE-INTACT (NEGATIVE); PROTEIN,URINE 30 mg/dL (NEGATIVE)
[2024-01-15 16:06] LABS: AMORPHOUS SEDIMENT,URINE MODERATE; BACTERIA,URINE MANY; EPITHELIAL CELLS,URINE MODERATE; MUCUS,URINE MODERATE; RBC,URINE 0-5 (0-5); WBC,URINE 30-40 (0-5)
[2024-01-15] MEDS: Albuterol/Ipratropium 3.0-0.5 MG/3 ML Neb Soln NEB SCH (16:24)
[2024-01-15] MEDS: guaiFENesin/Dextromethorphan 100-10 MG/5 ML Soln 10 ML Cup PO PRN (16:37)
[2024-01-15] MEDS: Sodium Chloride 0.9% 1,000 ML IV SCH (16:46)
[2024-01-15] MEDS: LORazepam 1 MG Tab PO PRN (17:26)
[2024-01-15] MEDS ORDERED: LOTEPREDNOL EYERT SCH (21:00)
[2024-01-15] MEDS: Apixaban 5 MG Tab PO SCH (23:47)
[2024-01-15] MEDS: Pregabalin 100 MG Cap PO SCH (23:47)
[2024-01-15] MEDS: Lactobacillus Rhamnosus GG (Probiotic) Cap PO SCH (23:47)
[2024-01-15] MEDS: Buprenorphine/Naloxone 8-2 MG Tab.SL SL SCH (23:47)
[2024-01-15] MEDS: Formoterol/Mometasone 200-5 MCG 8.8 GM Inhaler INH SCH (23:47)
[2024-01-15] MEDS: traZODone 50 MG Tab PO SCH (23:47)
[2024-01-16] MEDS: Lisinopril 5 MG Tab PO SCH (01:32)
[2024-01-16] MEDS: cefTRIAXone 1 GM in Sodium Chloride 0.9% 50 ML IV SCH (02:28)
[2024-01-16 05:16] LABS: BICARBONATE,ARTERIAL 30.8 mmol/L (22.0-26.0); CARBOXYHEMOGLOBIN 2.2 % (0.0-1.6); METHEMOGLOBIN 0.6 %; O2 SATURATION ARTERIAL 92.3 % (95.0-98.0); OXYHEMOGLOBIN 89.7 %; PCO2 ARTERIAL 53.8 mmHg (35.0-42.0); PO2 ARTERIAL 61.6 mmHg (75.0-100.0); TOTAL HEMOGLOBIN 11.4 g/dL (13.5-18.0)
[2024-01-16 05:23] LABS: HEMATOCRIT 33.6 % (38.4-49.7); HEMOGLOBIN 10.8 g/dL (12.9-16.9); MEAN CORPUSCULAR HEMOGLOBIN 29.8 pg (31.6-35.5); MEAN CORPUSCULAR HGB CONC 32.1 g/dL (31.6-35.5); MEAN CORPUSCULAR VOLUME 92.8 fL (81.4-99.0); RED BLOOD CELL COUNT 3.62 M/uL (4.14-5.76); WHITE BLOOD CELL COUNT,WBC 11.3 K/uL (3.2-11.0)
[2024-01-16 05:37] LABS: CALCIUM 8.3 mg/dL (8.5-10.1); EST CRCL DRUG DOSING (CG) 65.05 mL/min; POTASSIUM,K 4.4 mmol/L (3.6-5.2)
[2024-01-16 05:39] LABS: ANION GAP 11.4 mmol/L (5.0-14.0)
[2024-01-16] MEDS: Aspirin 81 MG Tab.Chew PO SCH (08:50)
[2024-01-16] MEDS: NICOTINE PATCH CHECK TOP SCH (09:05)
[2024-01-16] MEDS: Pregabalin 100 MG Cap PO SCH (09:05)
[2024-01-16] MEDS: Atropine/Diphenoxylate 0.025-2.5 MG Tab PO SCH (09:11)
[2024-01-16] MEDS ORDERED: Hypromellose 0.3% Ophth Soln 15 ML Bottle EYEBOTH PRN (10:51)
[2024-01-16] MEDS ORDERED: Azithromycin 500 MG in Sodium Chloride 0.9% 250 ML IV SCH (15:00)
[2024-01-16] MEDS: Azithromycin 250 MG Tab PO SCH (15:15)
[2024-01-16] MEDS: Acetaminophen 325 MG Tab PO PRN (17:27)
[2024-01-17] MEDS: predniSONE 20 MG Tab PO ONE (11:05)
[2024-01-18] MEDS: predniSONE 20 MG Tab PO SCH (07:19)
[2024-01-18] MEDS: Cefdinir 300 MG Cap PO SCH (08:52)
[2024-01-18] MEDS: Benzonatate 100 MG Cap PO PRN (13:03)
[2024-01-18] MEDS: Codeine/guaiFENesin 10-100 MG/5 ML Syrup 5 ML Cup PO PRN (19:43)
[2024-01-19] MEDS: Atropine/Diphenoxylate 0.025-2.5 MG Tab PO ONE (03:29)
== END 2024-01-19 10:00 | disposition home health service (06) | DRG 193 ==
LOC: JP.ED 11:13 → JP.ICU 15:08
PROVIDERS: ADMIT Internal Medicine; ATTEND Internal Medicine
PROC: 5A09357 Assistance with Respiratory Ventilation, Less than 24 Consecutive Hours, Continuous Positive Airway Pressure (ICD-10-PCS; principal; 2024-01-15)
PROC: 4A133R1 Monitoring of Arterial Saturation, Peripheral, Percutaneous Approach (ICD-10-PCS; 2024-01-15)
PROC: 5A0935A Assistance with Respiratory Ventilation, Less than 24 Consecutive Hours, High Flow/Velocity Cannula (ICD-10-PCS; 2024-01-16)
DX: J96.21 Acute and chronic respiratory failure with hypoxia (principal); J96.22 Acute and chronic respiratory failure with hypercapnia; I10 Essential (primary) hypertension; J44.9 Chronic obstructive pulmonary disease, unspecified; J18.9 Pneumonia, unspecified organism; J96.01 Acute respiratory failure with hypoxia; J96.02 Acute respiratory failure with hypercapnia; J44.0 Chronic obstructive pulmonary disease with (acute) lower respiratory infection; J44.1 Chronic obstructive pulmonary disease with (acute) exacerbation; Z88.1 Allergy status to other antibiotic agents; E78.00 Pure hypercholesterolemia, unspecified; G89.29 Other chronic pain; G43.909 Migraine, unspecified, not intractable, without status migrainosus; H54.7 Unspecified visual loss; F41.9 Anxiety disorder, unspecified; F32.A Depression, unspecified; D72.829 Elevated white blood cell count, unspecified; I50.9 Heart failure, unspecified; I11.0 Hypertensive heart disease with heart failure; M54.50 Low back pain, unspecified; Z99.81 Dependence on supplemental oxygen; Z86.718 Personal history of other venous thrombosis and embolism; Z86.73 Personal history of transient ischemic attack (TIA), and cerebral infarction without residual deficits; Z86.79 Personal history of other diseases of the circulatory system; Z88.8 Allergy status to other drugs, medicaments and biological substances; Z79.51 Long term (current) use of inhaled steroids; Z79.82 Long term (current) use of aspirin; Z79.899 Other long term (current) drug therapy; Z79.01 Long term (current) use of anticoagulants; Z85.46 Personal history of malignant neoplasm of prostate; Z98.890 Other specified postprocedural states; Z87.891 Personal history of nicotine dependence
CPT/HCPCS: 36415; 70450 ×2; 71045 ×2; 80053; 82803 ×2; 83605; 83735; 83880; 84484; 85025; 85610; 85730; 87040 ×2; 93005; 93010; 94640 ×2; 94660; 96365; 96375; 99285 ×2; J0456; J0696; J3490; J7050; 36600; 80048; 81001; 85027; 87070; 87205; 94667; 99223; 99232; 99233; 99238; A9270-GY; J0574-GY; J7030; J7512; J7620; U0002

== ENCOUNTER 2024-01-20 20:32 | Emergency (ER) | payer OTHER, MEDICARE ==
[2024-01-20] MEDS: Albuterol/Ipratropium 3.0-0.5 MG/3 ML Neb Soln NEB ONE (21:31)
[2024-01-20 21:44] LABS: BASOPHILS PERCENT AUTO 0.3 % (0.1-1.3); HEMATOCRIT 35.8 % (38.4-49.7); HEMOGLOBIN 11.6 g/dL (12.9-16.9); IMMATURE GRAN ABSOLUTE AUTO 0.03 K/uL (0.00-0.23); IMMATURE GRAN PERCENT AUTO 0.4 % (0.0-0.7); LYMPHOCYTES ABSOLUTE AUTO 1.54 K/uL (0.8-3.3); LYMPHOCYTES PERCENT AUTO 20.7 % (11.4-47.7); MEAN CORPUSCULAR HEMOGLOBIN 29.6 pg (31.6-35.5); MEAN CORPUSCULAR HGB CONC 32.4 g/dL (31.6-35.5); MEAN CORPUSCULAR VOLUME 91.3 fL (81.4-99.0); MONOCYTES ABSOLUTE AUTO 0.53 K/uL (0.20-0.90); MONOCYTES PERCENT AUTO 7.1 % (3.3-12.6); NEUTROPHILS ABSOLUTE AUTO 5.33 K/uL (1.0-7.6); NEUTROPHILS PERCENT AUTO 71.5 % (40.0-78.1); PLATELET COUNT,PLT 229 K/uL (130-375); RED BLOOD CELL COUNT 3.92 M/uL (4.14-5.76); WHITE BLOOD CELL COUNT,WBC 7.5 K/uL (3.2-11.0)
[2024-01-20 21:46] LABS: BASOPHILS ABSOLUTE AUTO 0.02 K/uL (0.00-0.10)
[2024-01-20 22:09] LABS: CREATININE 1.1 mg/dL (0.8-1.3); EST CRCL DRUG DOSING (CG) 58.99 mL/min
== END 2024-01-20 22:22 | disposition home or self-care (01) ==
LOC: JP.ED 20:32
DX: J44.1 Chronic obstructive pulmonary disease with (acute) exacerbation (principal); I10 Essential (primary) hypertension; E78.00 Pure hypercholesterolemia, unspecified; Z79.899 Other long term (current) drug therapy; Z79.2 Long term (current) use of antibiotics; Z79.82 Long term (current) use of aspirin; Z88.8 Allergy status to other drugs, medicaments and biological substances
CPT/HCPCS: 36415; 80048; 83605; 84484; 85025; 94640; 99285; J7620

== ENCOUNTER 2024-01-30 11:41 | Emergency (ER) | payer OTHER, MEDICARE | END 2024-01-30 12:53 | disposition left against medical advice (07) | LOC: JP.ED 11:41 | DX: Z53.21 Procedure and treatment not carried out due to patient leaving prior to being seen by health care provider (principal) ==

== ENCOUNTER 2024-03-03 15:29 | Emergency (ER) | payer OTHER, MEDICARE ==
[2024-03-03] MEDS ORDERED: Fluorescein 1 MG Ophth Strip EYERT ONE (16:29)
[2024-03-03] MEDS: Proparacaine 0.5% Ophth Soln 15 ML Bottle EYERT ONE (16:45)
== END 2024-03-03 17:13 | disposition home or self-care (01) ==
LOC: JP.ED 15:29
DX: S05.01XA Injury of conjunctiva and corneal abrasion without foreign body, right eye, initial encounter (principal); I10 Essential (primary) hypertension; E78.00 Pure hypercholesterolemia, unspecified; J44.9 Chronic obstructive pulmonary disease, unspecified; Z86.73 Personal history of transient ischemic attack (TIA), and cerebral infarction without residual deficits; Z79.82 Long term (current) use of aspirin; Z79.899 Other long term (current) drug therapy; Z88.8 Allergy status to other drugs, medicaments and biological substances; X58.XXXA Exposure to other specified factors, initial encounter
CPT/HCPCS: 99283; A9270

== ENCOUNTER 2024-04-28 10:50 | Emergency (ER) | payer OTHER, MEDICARE | END 2024-04-28 11:53 | disposition home or self-care (01) | LOC: JP.ED 10:50 | DX: H60.502 Unspecified acute noninfective otitis externa, left ear (principal); I10 Essential (primary) hypertension; E78.00 Pure hypercholesterolemia, unspecified; Z88.8 Allergy status to other drugs, medicaments and biological substances; Z79.899 Other long term (current) drug therapy | CPT/HCPCS: 99282; 99283 ==

== ENCOUNTER 2024-05-18 06:38 | Inpatient (IN) | payer OTHER, MEDICARE ==
[2024-05-18] MEDS: Furosemide 40 MG/4 ML VIAL IVPUSH ONE (06:45)
[2024-05-18 06:48] LABS: BASOPHILS ABSOLUTE AUTO 0.03 K/uL (0.00-0.10); BASOPHILS PERCENT AUTO 0.2 % (0.1-1.3); HEMATOCRIT 37.4 % (38.4-49.7); HEMOGLOBIN 11.9 g/dL (12.9-16.9); IMMATURE GRAN ABSOLUTE AUTO 0.03 K/uL (0.00-0.23); IMMATURE GRAN PERCENT AUTO 0.2 % (0.0-0.7); LYMPHOCYTES ABSOLUTE AUTO 0.82 K/uL (0.8-3.3); LYMPHOCYTES PERCENT AUTO 6.4 % (11.4-47.7); MEAN CORPUSCULAR HEMOGLOBIN 30.7 pg (31.6-35.5); MEAN CORPUSCULAR HGB CONC 31.8 g/dL (31.6-35.5); MEAN CORPUSCULAR VOLUME 96.4 fL (81.4-99.0); MONOCYTES PERCENT AUTO 5.5 % (3.3-12.6); NEUTROPHILS ABSOLUTE AUTO 11.21 K/uL (1.0-7.6); NEUTROPHILS PERCENT AUTO 87.7 % (40.0-78.1); PLATELET COUNT,PLT 136 K/uL (130-375); RED BLOOD CELL COUNT 3.88 M/uL (4.14-5.76); WHITE BLOOD CELL COUNT,WBC 12.8 K/uL (3.2-11.0)
[2024-05-18] MEDS: Albuterol 0.083% 2.5 MG/3 ML Neb Soln NEB ONE (07:08)
[2024-05-18 07:14] LABS: A/G RATIO 0.9 (1.2-2.2); ALANINE AMINOTRANSFERASE,ALT 23 U/L (12-78); ALBUMIN 3.3 g/dL (3.4-5.0); ALKALINE PHOSPHATASE 83 U/L (46-116); ANION GAP 7.3 mmol/L (5.0-14.0); ASPARTATE AMNIOTRANSFERASE,AST 19 U/L (15-37); BILIRUBIN TOTAL 0.8 mg/dL (0.2-1.0); BLOOD UREA NITROGEN,BUN 15 mg/dL (7-18); CALCIUM 8.8 mg/dL (8.5-10.1); CARBON DIOXIDE,CO2 31 mmol/L (21-32); CHLORIDE,CL 102 mmol/L (100-108); CREATININE 1.4 mg/dL (0.8-1.3); ESTIMATED GFR 52 mL/min (>60); GLUCOSE RANDOM 141 mg/dL (74-106); POTASSIUM,K 4.4 mmol/L (3.6-5.2); PROTEIN TOTAL,TP 7.1 g/dL (6.4-8.2); SODIUM,NA 140 mmol/L (140-148)
[2024-05-18] MEDS: Lidocaine 2% Jelly 10 ML Urojet MUCMEM ONE (07:15)
[2024-05-18] MEDS: Lidocaine 2% Jelly 10 ML Urojet ONE (07:15)
[2024-05-18] MEDS: Propofol 200 MG/20 ML SDV IVPUSH ONE (07:20)
[2024-05-18 07:22] LABS: BASE EXCESS ARTERIAL 2.9 mm/L; BICARBONATE,ARTERIAL 27.3 mmol/L (22.0-26.0); CARBOXYHEMOGLOBIN 2.3 % (0.0-1.6); METHEMOGLOBIN 0.6 %; O2 SATURATION ARTERIAL 98.6 % (95.0-98.0); OXYHEMOGLOBIN 95.7 %; PCO2 ARTERIAL 43.1 mmHg (35.0-42.0); TOTAL HEMOGLOBIN 11.4 g/dL (13.5-18.0)
[2024-05-18] MEDS: Norepinephrine Bit/D5W Premix 4 MG in Premix Bag 1 BAG IV SCH (07:30)
[2024-05-18] MEDS: propofoL 100 ML IV SCH (07:30)
[2024-05-18] MEDS: Heparin Sodium 5,000 UNITS in Sodium Chloride 0.9% 500 ML IV SCH (07:55)
[2024-05-18] MEDS: Sodium Chloride 0.9% 1,000 ML IV SCH ×2 (08:07→12:30)
[2024-05-18] MEDS: cefTRIAXone 2 GM in Sodium Chloride 0.9% 50 ML IV ONE (08:10)
[2024-05-18 08:23] LABS: APPEARANCE,URINE TURBID (CLEAR); BILIRUBIN,URINE NEGATIVE (NEGATIVE); COLOR,URINE YELLOW (YELLOW); GLUCOSE,URINE NEGATIVE (NEGATIVE); KETONES,URINE NEGATIVE (NEGATIVE); LEUKOCYTE ESTERASE,URINE SMALL (NEGATIVE); NITRITE,URINE NEGATIVE (NEGATIVE); OCCULT BLOOD,URINE LARGE (NEGATIVE); PH,URINE 5.5 (5.0-8.0); PROTEIN,URINE NEGATIVE (NEGATIVE)
[2024-05-18 08:34] LABS: BACTERIA,URINE MODERATE; EPITHELIAL CELLS,URINE FEW; MUCUS,URINE NOT SEEN; RBC,URINE 50-75 (0-5)
[2024-05-18 08:35] LABS: AMORPHOUS SEDIMENT,URINE MODERATE
[2024-05-18] MEDS: Heparin Sodium 5,000 Units/ML Vial ONE (10:16)
[2024-05-18] MEDS: Rocuronium 50 MG/5 ML Vial ONE (10:17)
[2024-05-18] MEDS: Succinylcholine 200 MG/10 ML MDV ONE (10:17)
[2024-05-18] MEDS: propofoL 100 ML ONE (10:27)
[2024-05-18] MEDS: Norepinephrine Bit/D5W Premix 250 ML ONE (10:27)
[2024-05-18 12:02] LABS: CORONAVIRUS COVID-19 NAA NEGATIVE (NEGATIVE); INFLUENZA A NAA NEGATIVE (NEGATIVE); INFLUENZA B NAA NEGATIVE (NEGATIVE); RESPIRATORY SYNCYTIAL VIR NAA NEGATIVE (NEGATIVE)
[2024-05-18] MEDS ORDERED: Albuterol/Ipratropium 3.0-0.5 MG/3 ML Neb Soln NEB PRN (12:13)
[2024-05-18] MEDS ORDERED: Albuterol 0.083% 2.5 MG/3 ML Neb Soln NEB PRN (12:13)
[2024-05-18] MEDS ORDERED: Ondansetron 4 MG/2 ML SDV IV PRN (12:13)
[2024-05-18] MEDS ORDERED: Acetaminophen Soln 650 MG/20.3 ML UD Cup NGTUBE PRN (12:36)
[2024-05-18] MEDS ORDERED: Piperacillin/Tazobactam 4.5 GM in Sodium Chloride 0.9% 100 ML IV SCH (14:00)
[2024-05-18] MEDS ORDERED: NALOXONE HCL 4 MG NAS PRN (14:32)
[2024-05-18] MEDS ORDERED: [UNRECOGNIZED DRUG - OTHER] EYEBOTH PRN (14:32)
[2024-05-18] MEDS ORDERED: CARBOXYMETHYLCELLULOSE SODIUM EYEBOTH PRN (14:32)
[2024-05-18] MEDS: methylPREDNISolone Sodium Succinate 125 MG/2 ML SDV IVPUSH ONE (14:33)
[2024-05-18] MEDS: Piperacillin/Tazobactam/Dext 4.5 GM in Premix Bag 1 BAG IV ONE (14:33)
[2024-05-18] MEDS: Lidocaine 4% Top Soln 50 ML Bottle MUCMEM ONE (14:48)
[2024-05-18] MEDS ORDERED: Hypromellose 0.3% Ophth Soln 15 ML Bottle EYEBOTH PRN ×2 (14:49→14:50)
[2024-05-18] MEDS: Albuterol/Ipratropium 3.0-0.5 MG/3 ML Neb Soln NEB SCH (15:02)
[2024-05-18] MEDS ORDERED: 50% Dextrose in Water 50 ML Syringe IVPUSH PRN (15:13)
[2024-05-18] MEDS ORDERED: Glucagon,Human Recombinant 1 MG Vial IM PRN (15:13)
[2024-05-18 15:26] LABS: BASOPHILS ABSOLUTE AUTO 0.03 K/uL (0.00-0.10); BASOPHILS PERCENT AUTO 0.2 % (0.1-1.3); HEMATOCRIT 31.6 % (38.4-49.7); HEMOGLOBIN 10.2 g/dL (12.9-16.9); IMMATURE GRAN ABSOLUTE AUTO 0.08 K/uL (0.00-0.23); IMMATURE GRAN PERCENT AUTO 0.5 % (0.0-0.7); LYMPHOCYTES ABSOLUTE AUTO 1.43 K/uL (0.8-3.3); LYMPHOCYTES PERCENT AUTO 9.2 % (11.4-47.7); MEAN CORPUSCULAR HEMOGLOBIN 30.4 pg (31.6-35.5); MEAN CORPUSCULAR HGB CONC 32.3 g/dL (31.6-35.5); MONOCYTES ABSOLUTE AUTO 0.79 K/uL (0.20-0.90); MONOCYTES PERCENT AUTO 5.1 % (3.3-12.6); NEUTROPHILS ABSOLUTE AUTO 13.13 K/uL (1.0-7.6); PLATELET COUNT,PLT 127 K/uL (130-375); RED BLOOD CELL COUNT 3.36 M/uL (4.14-5.76); WHITE BLOOD CELL COUNT,WBC 15.5 K/uL (3.2-11.0)
[2024-05-18 15:27] LABS: BASE EXCESS ARTERIAL 3.5 mm/L; BICARBONATE,ARTERIAL 27.7 mmol/L (22.0-26.0); CARBOXYHEMOGLOBIN 1.6 % (0.0-1.6); METHEMOGLOBIN 0.6 %; O2 SATURATION ARTERIAL 98.2 % (95.0-98.0); PCO2 ARTERIAL 42.4 mmHg (35.0-42.0); PO2 ARTERIAL 99.8 mmHg (75.0-100.0); TOTAL HEMOGLOBIN 10.5 g/dL (13.5-18.0)
[2024-05-18 15:41] LABS: ANION GAP 9.8 mmol/L (5.0-14.0); CALCIUM 8.2 mg/dL (8.5-10.1); CREATININE 1.5 mg/dL (0.8-1.3); EST CRCL DRUG DOSING (CG) 47.35 mL/min; POTASSIUM,K 3.6 mmol/L (3.6-5.2)
[2024-05-18] MEDS: Insulin Lispro 100 Unit/ML 3 ML KwikPen SUBCUT SCH (17:52)
[2024-05-18] MEDS: Morphine 2 MG/ML SYRINGE IVPUSH PRN (17:52)
[2024-05-18] MEDS ORDERED: fentaNYL 2,500 MCG in Sodium Chloride 0.9% 200 ML IV SCH (18:00)
[2024-05-18] MEDS ORDERED: fentaNYL 50 MCG/ML SDV IVPUSH PRN (18:01)
[2024-05-18] MEDS: methylPREDNISolone Sodium Succinate 40 MG/1 ML SDV IVPUSH SCH (18:23)
[2024-05-18] MEDS: Piperacillin/Tazobactam/Dext 4.5 GM in Premix Bag 1 BAG IV SCH (18:23)
[2024-05-18] MEDS: Midazolam 1 MG/ML 5 ML SDV ONE (18:32)
[2024-05-18] MEDS: Midazolam 50 MG in Premix Bag 1 BAG IV SCH (19:45)
[2024-05-18] MEDS: Sodium Chloride 0.9% 50 ML ONE (20:25)
[2024-05-18] MEDS: Lactobacillus Rhamnosus GG (Probiotic) Cap PO SCH (21:05)
[2024-05-19] MEDS ORDERED: Aspirin 81 MG Tab.Chew PO SCH (09:00)
[2024-05-19] MEDS ORDERED: Carvedilol 3.125 MG Tab PO SCH (09:00)
[2024-05-19] MEDS ORDERED: LOTEPREDNOL EYERT SCH (09:00)
== END 2024-05-19 06:16 | DRG 208 ==
LOC: JP.ED 06:38 → JP.ICU 12:13
PROVIDERS: ADMIT Hospitalist; ATTEND Hospitalist
PROC: 5A1935Z Respiratory Ventilation, Less than 24 Consecutive Hours (ICD-10-PCS; principal; 2024-05-18)
PROC: 0BH17EZ Insertion of Endotracheal Airway into Trachea, Via Natural or Artificial Opening (ICD-10-PCS; 2024-05-18)
PROC: 03HY32Z Insertion of Monitoring Device into Upper Artery, Percutaneous Approach (ICD-10-PCS; 2024-05-18)
PROC: 4A133B1 Monitoring of Arterial Pressure, Peripheral, Percutaneous Approach (ICD-10-PCS; 2024-05-18)
PROC: 4A133J1 Monitoring of Arterial Pulse, Peripheral, Percutaneous Approach (ICD-10-PCS; 2024-05-18)
PROC: 5A09357 Assistance with Respiratory Ventilation, Less than 24 Consecutive Hours, Continuous Positive Airway Pressure (ICD-10-PCS; 2024-05-18)
PROC: 3E033XZ Introduction of Vasopressor into Peripheral Vein, Percutaneous Approach (ICD-10-PCS; 2024-05-18)
PROC: 4A133R1 Monitoring of Arterial Saturation, Peripheral, Percutaneous Approach (ICD-10-PCS; 2024-05-18)
DX: J96.90 Respiratory failure, unspecified, unspecified whether with hypoxia or hypercapnia (principal); J18.9 Pneumonia, unspecified organism; J96.01 Acute respiratory failure with hypoxia; I10 Essential (primary) hypertension; J44.0 Chronic obstructive pulmonary disease with (acute) lower respiratory infection; I95.2 Hypotension due to drugs; E78.00 Pure hypercholesterolemia, unspecified; N18.31 Chronic kidney disease, stage 3a; I12.9 Hypertensive chronic kidney disease with stage 1 through stage 4 chronic kidney disease, or unspecified chronic kidney disease; J44.9 Chronic obstructive pulmonary disease, unspecified; M54.9 Dorsalgia, unspecified; G89.29 Other chronic pain; F41.9 Anxiety disorder, unspecified; F32.A Depression, unspecified; E86.0 Dehydration; I48.0 Paroxysmal atrial fibrillation; I25.10 Atherosclerotic heart disease of native coronary artery without angina pectoris; H54.7 Unspecified visual loss; M54.50 Low back pain, unspecified; K21.9 Gastro-esophageal reflux disease without esophagitis; E66.9 Obesity, unspecified; N36.8 Other specified disorders of urethra; Z88.8 Allergy status to other drugs, medicaments and biological substances; Z79.51 Long term (current) use of inhaled steroids; Z79.899 Other long term (current) drug therapy; Z79.82 Long term (current) use of aspirin; Z79.01 Long term (current) use of anticoagulants; Z86.73 Personal history of transient ischemic attack (TIA), and cerebral infarction without residual deficits; Z85.46 Personal history of malignant neoplasm of prostate; Z98.890 Other specified postprocedural states; Z68.31 Body mass index [BMI] 31.0-31.9, adult
CPT/HCPCS: 0241U; 36415; 36600; 70450; 71045; 71250; 80048; 80053; 81001; 82803; 82947; 83605; 83880; 84484; 85025; 85379; 87040; 87070; 87205; 93005; 94640; 31500; 36620; 51702; 93010; 96365; 96366; 96368; 96375; 99285; 99285-25; A9270-GY; J0330; J0696; J1644; J1815; J1940; J2250; J2270; J2543; J2704; J2919; J3490; J7030; J7040; J7620

== ENCOUNTER 2024-06-20 16:58 | Inpatient (IN) | payer OTHER, MEDICARE ==
[2024-06-20 18:01] LABS: BASOPHILS ABSOLUTE AUTO 0.04 K/uL (0.00-0.10); BASOPHILS PERCENT AUTO 0.4 % (0.1-1.3); EOSINOPHILS ABSOLUTE AUTO 0.03 K/uL (0.00-0.40); EOSINOPHILS PERCENT AUTO 0.3 % (0.0-5.4); HEMATOCRIT 38.4 % (38.4-49.7); HEMOGLOBIN 11.8 g/dL (12.9-16.9); IMMATURE GRAN ABSOLUTE AUTO 0.03 K/uL (0.00-0.23); IMMATURE GRAN PERCENT AUTO 0.3 % (0.0-0.7); LYMPHOCYTES PERCENT AUTO 11.8 % (11.4-47.7); MEAN CORPUSCULAR HEMOGLOBIN 28.9 pg (31.6-35.5); MEAN CORPUSCULAR HGB CONC 30.7 g/dL (31.6-35.5); MEAN CORPUSCULAR VOLUME 93.9 fL (81.4-99.0); MONOCYTES ABSOLUTE AUTO 0.64 K/uL (0.20-0.90); MONOCYTES PERCENT AUTO 6.3 % (3.3-12.6); NEUTROPHILS ABSOLUTE AUTO 8.19 K/uL (1.0-7.6); NEUTROPHILS PERCENT AUTO 80.9 % (40.0-78.1); PLATELET COUNT,PLT 149 K/uL (130-375); RED BLOOD CELL COUNT 4.09 M/uL (4.14-5.76); WHITE BLOOD CELL COUNT,WBC 10.1 K/uL (3.2-11.0)
[2024-06-20 18:13] LABS: INR 1.2; PROTHROMBIN TIME 11.7 sec (9.2-10.6)
[2024-06-20 18:23] LABS: A/G RATIO 0.6 (1.2-2.2); ALANINE AMINOTRANSFERASE,ALT 23 U/L (12-78); ALKALINE PHOSPHATASE 86 U/L (46-116); ASPARTATE AMNIOTRANSFERASE,AST 38 U/L (15-37); BILIRUBIN TOTAL 0.6 mg/dL (0.2-1.0); BLOOD UREA NITROGEN,BUN 43 mg/dL (7-18); CALCIUM 9.4 mg/dL (8.5-10.1); CARBON DIOXIDE,CO2 35 mmol/L (21-32); CHLORIDE,CL 102 mmol/L (100-108); CREATININE 2.2 mg/dL (0.8-1.3); ESTIMATED GFR 30 mL/min (>60); GLUCOSE RANDOM 118 mg/dL (74-106); POTASSIUM,K 5.1 mmol/L (3.6-5.2); PRO B-TYPE NATRIUR PEPT,BNPPRO 752 pg/mL (5-450); PROTEIN TOTAL,TP 8.2 g/dL (6.4-8.2); SODIUM,NA 142 mmol/L (140-148); TROPONIN I HIGH SENSITIVITY 13.5 pg/mL (<=60.3)
[2024-06-20 18:28] LABS: ANION GAP 10.1 mmol/L (5.0-14.0)
[2024-06-20 18:37] LABS: BILIRUBIN,URINE NEGATIVE (NEGATIVE); COLOR,URINE YELLOW (YELLOW); GLUCOSE,URINE NEGATIVE (NEGATIVE); KETONES,URINE NEGATIVE (NEGATIVE); LEUKOCYTE ESTERASE,URINE TRACE (NEGATIVE); NITRITE,URINE NEGATIVE (NEGATIVE); OCCULT BLOOD,URINE SMALL (NEGATIVE); PROTEIN,URINE 100 mg/dL (NEGATIVE)
[2024-06-20 19:11] LABS: AMORPHOUS SEDIMENT,URINE FEW; APPEARANCE,URINE CLOUDY (CLEAR); BACTERIA,URINE MODERATE; EPITHELIAL CELLS,URINE RARE; MUCUS,URINE FEW; RBC,URINE 0-5 (0-5); WBC,URINE 0-5 (0-5)
[2024-06-20] MEDS ORDERED: CLONAZEPAM 0.5 MG PO PRN (21:20)
[2024-06-20] MEDS ORDERED: Non-Formulary Medication 1 Each (Buprenorphine Hcl/Naloxone Hcl [Buprenorphine-Nalox 8-2mg SL SCH (21:20)
[2024-06-20] MEDS ORDERED: Acetaminophen 325 MG Tab PO PRN (21:20)
[2024-06-20] MEDS ORDERED: NALOXONE HCL 4 MG NAS PRN (21:20)
[2024-06-20] MEDS ORDERED: ALBUTEROL INH PRN (21:20)
[2024-06-20] MEDS ORDERED: Sodium Chloride 0.9% 1,000 ML IV SCH (21:20)
[2024-06-20] MEDS ORDERED: Hypromellose 0.3% Ophth Soln 15 ML Bottle EYEBOTH PRN (21:20)
[2024-06-20] MEDS ORDERED: Albuterol/Ipratropium 3.0-0.5 MG/3 ML Neb Soln INH PRN (21:43)
[2024-06-20] MEDS: Albuterol/Ipratropium 3.0-0.5 MG/3 ML Neb Soln INH SCH (21:56)
[2024-06-20] MEDS: hydrOXYzine HCl 25 MG Tab PO SCH (22:39)
[2024-06-20] MEDS: Pregabalin 100 MG Cap PO SCH (22:39)
[2024-06-20] MEDS: valACYclovir 500 MG Tab PO SCH (22:39)
[2024-06-20] MEDS: Pravastatin 20 MG Tab PO SCH (22:39)
[2024-06-20] MEDS: Carvedilol 3.125 MG Tab PO SCH (22:39)
[2024-06-20] MEDS: Sennosides/Docusate Sodium 50-8.6 MG Tab PO SCH (23:20)
[2024-06-21 04:56] LABS: BASOPHILS ABSOLUTE AUTO 0.07 K/uL (0.00-0.10); BASOPHILS PERCENT AUTO 0.8 % (0.1-1.3); EOSINOPHILS PERCENT AUTO 1.2 % (0.0-5.4); HEMATOCRIT 34.6 % (38.4-49.7); HEMOGLOBIN 10.7 g/dL (12.9-16.9); IMMATURE GRAN ABSOLUTE AUTO 0.03 K/uL (0.00-0.23); IMMATURE GRAN PERCENT AUTO 0.4 % (0.0-0.7); LYMPHOCYTES ABSOLUTE AUTO 2.23 K/uL (0.8-3.3); LYMPHOCYTES PERCENT AUTO 26.7 % (11.4-47.7); MEAN CORPUSCULAR HEMOGLOBIN 28.8 pg (31.6-35.5); MEAN CORPUSCULAR HGB CONC 30.9 g/dL (31.6-35.5); MEAN CORPUSCULAR VOLUME 93.3 fL (81.4-99.0); MONOCYTES ABSOLUTE AUTO 0.76 K/uL (0.20-0.90); MONOCYTES PERCENT AUTO 9.1 % (3.3-12.6); NEUTROPHILS ABSOLUTE AUTO 5.16 K/uL (1.0-7.6); NEUTROPHILS PERCENT AUTO 61.8 % (40.0-78.1); PLATELET COUNT,PLT 143 K/uL (130-375); RED BLOOD CELL COUNT 3.71 M/uL (4.14-5.76); WHITE BLOOD CELL COUNT,WBC 8.4 K/uL (3.2-11.0)
[2024-06-21 05:27] LABS: CREATININE 1.7 mg/dL (0.8-1.3); EST CRCL DRUG DOSING (CG) 35.9 mL/min; POTASSIUM,K 4.2 mmol/L (3.6-5.2)
[2024-06-21 05:41] LABS: ANION GAP 10.2 mmol/L (5.0-14.0)
[2024-06-21] MEDS ORDERED: ClonazePAM 0.5 MG Tab PO PRN (07:13)
[2024-06-21] MEDS: Pregabalin 100 MG Cap PO SCH (08:22)
[2024-06-21] MEDS: Buprenorphine/Naloxone 8-2 MG Tab.SL SL SCH (08:22)
[2024-06-21] MEDS: Lisinopril 20 MG Tab PO SCH (08:25)
[2024-06-21] MEDS ORDERED: CARBOXYMETHYLCELLULOSE EYEBOTH PRN (08:35)
[2024-06-21] MEDS ORDERED: Aspirin 81 MG Tab.EC PO SCH (09:00)
[2024-06-21] MEDS: LOTEPREDNOL EYERT SCH (09:31)
[2024-06-21] MEDS: OPTH EYERT SCH ×2 (09:31→09:32)
[2024-06-21] MEDS: Aspirin 81 MG Tab.Chew PO SCH (09:31)
[2024-06-21] MEDS: MOXIFLOXACIN 0.5% EYERT SCH (09:32)
[2024-06-21] MEDS: traMADol 50 MG Tab PO PRN (11:57)
[2024-06-21] MEDS: Mirtazapine 15 MG Tab PO SCH (22:21)
[2024-06-21] MEDS: SIMVASTATIN 10 MG PO SCH (22:23)
[2024-06-21] MEDS: GANCICLOVIR EYERT SCH (22:35)
[2024-06-22 04:56] LABS: BASOPHILS ABSOLUTE AUTO 0.09 K/uL (0.00-0.10); BASOPHILS PERCENT AUTO 1.1 % (0.1-1.3); EOSINOPHILS ABSOLUTE AUTO 0.11 K/uL (0.00-0.40); EOSINOPHILS PERCENT AUTO 1.3 % (0.0-5.4); HEMATOCRIT 36.8 % (38.4-49.7); HEMOGLOBIN 11.1 g/dL (12.9-16.9); IMMATURE GRAN ABSOLUTE AUTO 0.03 K/uL (0.00-0.23); IMMATURE GRAN PERCENT AUTO 0.4 % (0.0-0.7); LYMPHOCYTES PERCENT AUTO 27.6 % (11.4-47.7); MEAN CORPUSCULAR HEMOGLOBIN 28.5 pg (31.6-35.5); MEAN CORPUSCULAR HGB CONC 30.2 g/dL (31.6-35.5); MEAN CORPUSCULAR VOLUME 94.6 fL (81.4-99.0); MONOCYTES ABSOLUTE AUTO 0.62 K/uL (0.20-0.90); MONOCYTES PERCENT AUTO 7.4 % (3.3-12.6); NEUTROPHILS ABSOLUTE AUTO 5.18 K/uL (1.0-7.6); NEUTROPHILS PERCENT AUTO 62.2 % (40.0-78.1); PLATELET COUNT,PLT 146 K/uL (130-375); RED BLOOD CELL COUNT 3.89 M/uL (4.14-5.76); WHITE BLOOD CELL COUNT,WBC 8.3 K/uL (3.2-11.0)
[2024-06-22 05:12] LABS: CALCIUM 9.1 mg/dL (8.5-10.1); CREATININE 1.5 mg/dL (0.8-1.3); EST CRCL DRUG DOSING (CG) 40.68 mL/min
[2024-06-22] MEDS: Sodium Chloride 0.9% 100 ML IV SCH (13:24)
[2024-06-22] MEDS: Sodium Chloride 0.9% 10 ML Syringe FLUSH PRN (13:24)
[2024-06-22] MEDS: Iopamidol 755 Mg/ML 100 ML Bottle IV SCH (13:24)
[2024-06-23 04:45] LABS: BASOPHILS ABSOLUTE AUTO 0.08 K/uL (0.00-0.10); BASOPHILS PERCENT AUTO 1.1 % (0.1-1.3); EOSINOPHILS ABSOLUTE AUTO 0.15 K/uL (0.00-0.40); HEMATOCRIT 35.9 % (38.4-49.7); IMMATURE GRAN PERCENT AUTO 0.1 % (0.0-0.7); LYMPHOCYTES ABSOLUTE AUTO 2.03 K/uL (0.8-3.3); LYMPHOCYTES PERCENT AUTO 27.6 % (11.4-47.7); MEAN CORPUSCULAR HEMOGLOBIN 28.9 pg (31.6-35.5); MEAN CORPUSCULAR HGB CONC 30.6 g/dL (31.6-35.5); MEAN CORPUSCULAR VOLUME 94.5 fL (81.4-99.0); MONOCYTES ABSOLUTE AUTO 0.51 K/uL (0.20-0.90); MONOCYTES PERCENT AUTO 6.9 % (3.3-12.6); NEUTROPHILS ABSOLUTE AUTO 4.58 K/uL (1.0-7.6); NEUTROPHILS PERCENT AUTO 62.3 % (40.0-78.1); PLATELET COUNT,PLT 160 K/uL (130-375); WHITE BLOOD CELL COUNT,WBC 7.4 K/uL (3.2-11.0)
[2024-06-23 05:00] LABS: CALCIUM 8.9 mg/dL (8.5-10.1); CREATININE 1.6 mg/dL (0.8-1.3); EST CRCL DRUG DOSING (CG) 38.14 mL/min
[2024-06-23 05:33] LABS: IMMATURE GRAN ABSOLUTE AUTO 0.01 K/uL (0.00-0.23)
[2024-06-25] MEDS: ClonazePAM 0.5 MG Tab PO PRN (19:46)
[2024-06-27] MEDS: Haloperidol Lactate 5 MG/ML SDV IVPUSH PRN (08:11)
[2024-06-28 06:03] LABS: HEMATOCRIT 35.7 % (38.4-49.7); MEAN CORPUSCULAR HEMOGLOBIN 28.8 pg (31.6-35.5); MEAN CORPUSCULAR HGB CONC 30.8 g/dL (31.6-35.5); MEAN CORPUSCULAR VOLUME 93.5 fL (81.4-99.0); RED BLOOD CELL COUNT 3.82 M/uL (4.14-5.76); WHITE BLOOD CELL COUNT,WBC 6.2 K/uL (3.2-11.0)
[2024-06-28 06:20] LABS: CREATININE 1.4 mg/dL (0.8-1.3); EST CRCL DRUG DOSING (CG) 43.59 mL/min; POTASSIUM,K 4.5 mmol/L (3.6-5.2)
[2024-06-28 06:25] LABS: ANION GAP 9.5 mmol/L (5.0-14.0)
[2024-06-28] MEDS ORDERED: Docusate Sodium 100 MG Cap PO PRN (09:32)
[2024-06-28] MEDS: Lidocaine 2% Jelly 10 ML Urojet MUCMEM ONE (10:59)
[2024-06-29] MEDS ORDERED: Sodium Phosphate,Monobasic/Sodium Phosphate,Dibasic Enema 133 ML Bottle RECTAL PRN (10:34)
[2024-06-29] MEDS: Polyethylene Glycol 3350 Powder 17 GM Packet PO ONE (12:14)
[2024-06-29] MEDS: Bisacodyl 10 MG Supp RECTAL ONE (14:52)
== END 2024-07-03 10:55 | disposition home or self-care (01) | DRG 57 ==
LOC: JP.ED 17:11 → UNDOADMIN 20:41 → JP.MS 20:41 → JP.ED 21:04 → UNDODISIN 07-03 10:55
PROVIDERS: ADMIT Hospitalist; ATTEND Internal Medicine
DX: I69.398 Other sequelae of cerebral infarction (principal); N28.9 Disorder of kidney and ureter, unspecified; R06.9 Unspecified abnormalities of breathing; F03.B4 Unspecified dementia, moderate, with anxiety; I13.0 Hypertensive heart and chronic kidney disease with heart failure and stage 1 through stage 4 chronic kidney disease, or unspecified chronic kidney disease; J44.1 Chronic obstructive pulmonary disease with (acute) exacerbation; Z79.01 Long term (current) use of anticoagulants; N17.9 Acute kidney failure, unspecified; I50.32 Chronic diastolic (congestive) heart failure; F03.B3 Unspecified dementia, moderate, with mood disturbance; Z66 Do not resuscitate; I48.91 Unspecified atrial fibrillation; E78.00 Pure hypercholesterolemia, unspecified; K21.9 Gastro-esophageal reflux disease without esophagitis; N18.9 Chronic kidney disease, unspecified; M54.50 Low back pain, unspecified; G89.29 Other chronic pain; I71.40 Abdominal aortic aneurysm, without rupture, unspecified; G47.30 Sleep apnea, unspecified; I25.10 Atherosclerotic heart disease of native coronary artery without angina pectoris; E86.0 Dehydration; K59.00 Constipation, unspecified; R33.9 Retention of urine, unspecified; Z88.8 Allergy status to other drugs, medicaments and biological substances; Z79.51 Long term (current) use of inhaled steroids; Z79.82 Long term (current) use of aspirin; Z79.899 Other long term (current) drug therapy; Z79.2 Long term (current) use of antibiotics; Z98.890 Other specified postprocedural states; Z85.46 Personal history of malignant neoplasm of prostate
CPT/HCPCS: 36415; 51702; 70450; 70450-26; 71045; 71045-26; 74174; 80048; 80053; 81001; 83605; 83880; 84145; 84484; 85025; 85027; 85610; 93005; 93010; 93306; 97110-GO; 97161-GP; 97165-GO; 97530-GP; 97535-GO; 99223; 99232; 99233; 99239; 99285; A9270-GY; J0574-GY; J1630; J3490; Q9967

== ENCOUNTER → 2024-06-20 | Emergency (ER) | payer SELFPAY ==
[2024-06-20 18:01] LABS: BASOPHILS ABSOLUTE AUTO 0.04 K/uL (0.00-0.10); BASOPHILS PERCENT AUTO 0.4 % (0.1-1.3); EOSINOPHILS ABSOLUTE AUTO 0.03 K/uL (0.00-0.40); EOSINOPHILS PERCENT AUTO 0.3 % (0.0-5.4); HEMATOCRIT 38.4 % (38.4-49.7); HEMOGLOBIN 11.8 g/dL (12.9-16.9); IMMATURE GRAN ABSOLUTE AUTO 0.03 K/uL (0.00-0.23); IMMATURE GRAN PERCENT AUTO 0.3 % (0.0-0.7); LYMPHOCYTES PERCENT AUTO 11.8 % (11.4-47.7); MEAN CORPUSCULAR HEMOGLOBIN 28.9 pg (31.6-35.5); MEAN CORPUSCULAR HGB CONC 30.7 g/dL (31.6-35.5); MEAN CORPUSCULAR VOLUME 93.9 fL (81.4-99.0); MONOCYTES ABSOLUTE AUTO 0.64 K/uL (0.20-0.90); MONOCYTES PERCENT AUTO 6.3 % (3.3-12.6); NEUTROPHILS ABSOLUTE AUTO 8.19 K/uL (1.0-7.6); NEUTROPHILS PERCENT AUTO 80.9 % (40.0-78.1); PLATELET COUNT,PLT 149 K/uL (130-375); RED BLOOD CELL COUNT 4.09 M/uL (4.14-5.76); WHITE BLOOD CELL COUNT,WBC 10.1 K/uL (3.2-11.0)
[2024-06-20 18:13] LABS: INR 1.2; PROTHROMBIN TIME 11.7 sec (9.2-10.6)
[2024-06-20 18:23] LABS: A/G RATIO 0.6 (1.2-2.2); ALANINE AMINOTRANSFERASE,ALT 23 U/L (12-78); ALKALINE PHOSPHATASE 86 U/L (46-116); ASPARTATE AMNIOTRANSFERASE,AST 38 U/L (15-37); BILIRUBIN TOTAL 0.6 mg/dL (0.2-1.0); BLOOD UREA NITROGEN,BUN 43 mg/dL (7-18); CALCIUM 9.4 mg/dL (8.5-10.1); CARBON DIOXIDE,CO2 35 mmol/L (21-32); CHLORIDE,CL 102 mmol/L (100-108); CREATININE 2.2 mg/dL (0.8-1.3); ESTIMATED GFR 30 mL/min (>60); GLUCOSE RANDOM 118 mg/dL (74-106); POTASSIUM,K 5.1 mmol/L (3.6-5.2); PRO B-TYPE NATRIUR PEPT,BNPPRO 752 pg/mL (5-450); PROTEIN TOTAL,TP 8.2 g/dL (6.4-8.2); SODIUM,NA 142 mmol/L (140-148); TROPONIN I HIGH SENSITIVITY 13.5 pg/mL (<=60.3)
[2024-06-20 18:28] LABS: ANION GAP 10.1 mmol/L (5.0-14.0)
[2024-06-20 18:37] LABS: BILIRUBIN,URINE NEGATIVE (NEGATIVE); COLOR,URINE YELLOW (YELLOW); GLUCOSE,URINE NEGATIVE (NEGATIVE); KETONES,URINE NEGATIVE (NEGATIVE); LEUKOCYTE ESTERASE,URINE TRACE (NEGATIVE); NITRITE,URINE NEGATIVE (NEGATIVE); OCCULT BLOOD,URINE SMALL (NEGATIVE); PROTEIN,URINE 100 mg/dL (NEGATIVE)
[2024-06-20 19:11] LABS: AMORPHOUS SEDIMENT,URINE FEW; APPEARANCE,URINE CLOUDY (CLEAR); BACTERIA,URINE MODERATE; EPITHELIAL CELLS,URINE RARE; MUCUS,URINE FEW; RBC,URINE 0-5 (0-5); WBC,URINE 0-5 (0-5)
== END | disposition critical access hospital (66) ==
LOC: JP.ED 17:11 → MERGE 17:11
DX: R53.1 Weakness (principal); W19.XXXA Unspecified fall, initial encounter
CPT/HCPCS: 36415; 70450; 70450-26; 71045; 71045-26; 80053; 81001; 83605; 83880; 84145; 84484; 85025; 85610; 93005; 99285

== ENCOUNTER 2024-07-11 13:41 | Inpatient (IN) | payer OTHER, MEDICARE ==
[2024-07-11 14:09] LABS: BASOPHILS ABSOLUTE AUTO 0.05 K/uL (0.00-0.10); BASOPHILS PERCENT AUTO 0.8 % (0.1-1.3); EOSINOPHILS ABSOLUTE AUTO 0.15 K/uL (0.00-0.40); EOSINOPHILS PERCENT AUTO 2.3 % (0.0-5.4); HEMATOCRIT 35.8 % (38.4-49.7); HEMOGLOBIN 11.5 g/dL (12.9-16.9); IMMATURE GRAN PERCENT AUTO 0.2 % (0.0-0.7); LYMPHOCYTES ABSOLUTE AUTO 1.43 K/uL (0.8-3.3); LYMPHOCYTES PERCENT AUTO 21.7 % (11.4-47.7); MEAN CORPUSCULAR HEMOGLOBIN 28.9 pg (31.6-35.5); MEAN CORPUSCULAR HGB CONC 32.1 g/dL (31.6-35.5); MEAN CORPUSCULAR VOLUME 89.9 fL (81.4-99.0); MONOCYTES ABSOLUTE AUTO 0.45 K/uL (0.20-0.90); MONOCYTES PERCENT AUTO 6.8 % (3.3-12.6); NEUTROPHILS ABSOLUTE AUTO 4.49 K/uL (1.0-7.6); NEUTROPHILS PERCENT AUTO 68.2 % (40.0-78.1); PLATELET COUNT,PLT 126 K/uL (130-375); RED BLOOD CELL COUNT 3.98 M/uL (4.14-5.76); WHITE BLOOD CELL COUNT,WBC 6.6 K/uL (3.2-11.0)
[2024-07-11 14:22] LABS: IMMATURE GRAN ABSOLUTE AUTO 0.01 K/uL (0.00-0.23)
[2024-07-11 14:26] LABS: INR 1.2; PROTHROMBIN TIME 11.9 sec (9.2-10.6)
[2024-07-11 14:30] LABS: A/G RATIO 0.7 (1.2-2.2); ALANINE AMINOTRANSFERASE,ALT 14 U/L (12-78); ALBUMIN 3.1 g/dL (3.4-5.0); ALKALINE PHOSPHATASE 96 U/L (46-116); ASPARTATE AMNIOTRANSFERASE,AST 21 U/L (15-37); BILIRUBIN TOTAL 0.7 mg/dL (0.2-1.0); BLOOD UREA NITROGEN,BUN 12 mg/dL (7-18); CALCIUM 9.3 mg/dL (8.5-10.1); CARBON DIOXIDE,CO2 29 mmol/L (21-32); CHLORIDE,CL 105 mmol/L (100-108); CREATININE 1.2 mg/dL (0.8-1.3); ESTIMATED GFR 63 mL/min (>60); GLUCOSE RANDOM 109 mg/dL (74-106); POTASSIUM,K 4.6 mmol/L (3.6-5.2); PROTEIN TOTAL,TP 7.4 g/dL (6.4-8.2); SODIUM,NA 140 mmol/L (140-148)
[2024-07-11] MEDS: Acetaminophen 325 MG Tab PO ONE (17:39)
[2024-07-11] MEDS: Lidocaine 2% Jelly 10 ML Urojet MUCMEM ONE (18:00)
[2024-07-11 18:01] LABS: APPEARANCE,URINE TURBID (CLEAR); BILIRUBIN,URINE SMALL (NEGATIVE); COLOR,URINE YELLOW (YELLOW); GLUCOSE,URINE NEGATIVE (NEGATIVE); KETONES,URINE 40 mg/dL (NEGATIVE); LEUKOCYTE ESTERASE,URINE SMALL (NEGATIVE); NITRITE,URINE NEGATIVE (NEGATIVE); OCCULT BLOOD,URINE LARGE (NEGATIVE); PH,URINE 8.5 (5.0-8.0); PROTEIN,URINE 100 mg/dL (NEGATIVE)
[2024-07-11 18:07] LABS: AMORPHOUS SEDIMENT,URINE MODERATE; BACTERIA,URINE MANY; EPITHELIAL CELLS,URINE FEW; MUCUS,URINE FEW; RBC,URINE PACKED (0-5); WBC,URINE PACKED (0-5)
[2024-07-11] MEDS ORDERED: Polyethylene Glycol 3350 Powder 17 GM Packet PO PRN (18:16)
[2024-07-11] MEDS ORDERED: Sodium Chloride 0.9% 10 ML Syringe FLUSH PRN (18:16)
[2024-07-11] MEDS ORDERED: Ondansetron 4 MG/2 ML SDV IV PRN (18:16)
[2024-07-11] MEDS ORDERED: Albuterol/Ipratropium 3.0-0.5 MG/3 ML Neb Soln NEB PRN (18:33)
[2024-07-11] MEDS ORDERED: NALOXONE HCL 4 MG NAS PRN (18:33)
[2024-07-11] MEDS ORDERED: Albuterol 6.7 GM Inhaler INH PRN (18:33)
[2024-07-11] MEDS: cefTRIAXone 1 GM in Sodium Chloride 0.9% 50 ML IV SCH (18:41)
[2024-07-11] MEDS: Sodium Chloride 0.9% 1,000 ML IV SCH (18:42)
[2024-07-11] MEDS: Tamsulosin 0.4 MG Cap.ER PO SCH (20:08)
[2024-07-11] MEDS: Mirtazapine 15 MG Tab PO SCH (20:08)
[2024-07-11] MEDS: Carvedilol 3.125 MG Tab PO SCH (20:08)
[2024-07-11] MEDS: Pregabalin 100 MG Cap PO SCH (20:08)
[2024-07-11] MEDS: Melatonin 3 MG Tab PO SCH (20:08)
[2024-07-11] MEDS: hydrOXYzine HCl 25 MG Tab PO SCH (20:08)
[2024-07-11] MEDS: Buprenorphine/Naloxone 8-2 MG Tab.SL SL SCH (20:08)
[2024-07-11] MEDS: Enoxaparin 40 MG/0.4 ML Syringe SUBCUT SCH (20:09)
[2024-07-11] MEDS: valACYclovir 500 MG Tab PO SCH (20:09)
[2024-07-11] MEDS: Sennosides/Docusate Sodium 50-8.6 MG Tab PO SCH (20:09)
[2024-07-11] MEDS: Moxifloxacin 0.5% Ophth Soln 3 ML Bottle EYERT SCH (20:09)
[2024-07-11] MEDS ORDERED: Non-Formulary Medication 1 Each (Simvastatin [Simvastatin] 10 MG Tablet) PO SCH (21:00)
[2024-07-12 05:43] LABS: HEMATOCRIT 34.2 % (38.4-49.7); HEMOGLOBIN 10.7 g/dL (12.9-16.9); MEAN CORPUSCULAR HEMOGLOBIN 28.7 pg (31.6-35.5); MEAN CORPUSCULAR HGB CONC 31.3 g/dL (31.6-35.5); MEAN CORPUSCULAR VOLUME 91.7 fL (81.4-99.0); RED BLOOD CELL COUNT 3.73 M/uL (4.14-5.76)
[2024-07-12 06:07] LABS: CALCIUM 8.9 mg/dL (8.5-10.1); CREATININE 1.2 mg/dL (0.8-1.3); EST CRCL DRUG DOSING (CG) 57.48 mL/min; MAGNESIUM 1.8 mg/dL (1.8-2.4); POTASSIUM,K 4.8 mmol/L (3.6-5.2)
[2024-07-12 06:14] LABS: ANION GAP 12.8 mmol/L (5.0-14.0)
[2024-07-12] MEDS ORDERED: Naloxone 0.4 MG/ML SDV NAS PRN (08:06)
[2024-07-12] MEDS: Aspirin 81 MG Tab.Chew PO SCH (08:21)
[2024-07-12] MEDS: Pregabalin 100 MG Cap PO SCH (08:22)
[2024-07-12] MEDS: GANCICLOVIR EYERT SCH (08:22)
[2024-07-12] MEDS: LOTEPREDNOL EYERT SCH (08:23)
[2024-07-12] MEDS: Lisinopril 20 MG Tab PO SCH (08:23)
[2024-07-12] MEDS: Acetaminophen 325 MG Tab PO PRN (08:26)
[2024-07-12] MEDS: Pravastatin 20 MG Tab PO SCH (20:16)
[2024-07-14] MEDS: Albuterol/Ipratropium 3.0-0.5 MG/3 ML Neb Soln NEB SCH (10:44)
[2024-07-14] MEDS: Albuterol/Ipratropium 3.0-0.5 MG/3 ML Neb Soln ONE (10:47)
[2024-07-14] MEDS: Haloperidol 1 MG Tab PO PRN (20:52)
[2024-07-14] MEDS: ClonazePAM 0.5 MG Tab PO PRN (20:52)
[2024-07-14] MEDS: Amoxicillin/Clavulanate K 875-125 MG Tab PO SCH (20:53)
[2024-07-16] MEDS: Hypromellose 0.3% Ophth Soln 15 ML Bottle EYEBOTH PRN (14:01)
== END 2024-07-17 12:45 | disposition home or self-care (01) | DRG 690 ==
LOC: JP.ED 13:41 → JP.MS 16:49
PROVIDERS: ADMIT Hospitalist; ATTEND Internal Medicine
DX: N39.0 Urinary tract infection, site not specified (principal); F03.B4 Unspecified dementia, moderate, with anxiety; J44.1 Chronic obstructive pulmonary disease with (acute) exacerbation; R29.6 Repeated falls; J44.9 Chronic obstructive pulmonary disease, unspecified; I12.9 Hypertensive chronic kidney disease with stage 1 through stage 4 chronic kidney disease, or unspecified chronic kidney disease; N18.9 Chronic kidney disease, unspecified; H54.7 Unspecified visual loss; I48.91 Unspecified atrial fibrillation; E78.00 Pure hypercholesterolemia, unspecified; Z88.7 Allergy status to serum and vaccine; Z88.8 Allergy status to other drugs, medicaments and biological substances; W19.XXXA Unspecified fall, initial encounter; K21.9 Gastro-esophageal reflux disease without esophagitis; K58.9 Irritable bowel syndrome, unspecified; G43.909 Migraine, unspecified, not intractable, without status migrainosus; Z66 Do not resuscitate; S20.212A Contusion of left front wall of thorax, initial encounter; E86.0 Dehydration; I50.9 Heart failure, unspecified; N40.1 Benign prostatic hyperplasia with lower urinary tract symptoms; Z79.82 Long term (current) use of aspirin; Z79.51 Long term (current) use of inhaled steroids; Z99.81 Dependence on supplemental oxygen; Z86.73 Personal history of transient ischemic attack (TIA), and cerebral infarction without residual deficits; Z79.2 Long term (current) use of antibiotics; Z79.1 Long term (current) use of non-steroidal anti-inflammatories (NSAID); Z79.01 Long term (current) use of anticoagulants; Z98.890 Other specified postprocedural states; Z90.79 Acquired absence of other genital organ(s); Z79.899 Other long term (current) drug therapy; Z79.02 Long term (current) use of antithrombotics/antiplatelets
CPT/HCPCS: 36415; 70450; 71250; 72125; 74176; 76377; 80048; 80053; 80307; 81001; 83605; 83735; 84484; 85025; 85027; 85610; 87086; 87088; 93005; 93010; 94640; 97110-GP; 97161-GP; 97165-GO; 97530-GP; 97535-GO; 99223; 99232; 99233; 99239; 99285; A9270-GY; J0574-GY; J0696; J1650; J3490; J7030; J7620

== ENCOUNTER 2024-12-06 16:08 | Emergency (ER) | payer MEDICARE, OTHER ==
[2024-12-06 16:31] LABS: BASOPHILS ABSOLUTE AUTO 0.06 K/uL (0.00-0.10); BASOPHILS PERCENT AUTO 0.5 % (0.1-1.3); EOSINOPHILS PERCENT AUTO 0.8 % (0.0-5.4); HEMATOCRIT 41.5 % (38.4-49.7); HEMOGLOBIN 12.7 g/dL (12.9-16.9); IMMATURE GRAN ABSOLUTE AUTO 0.05 K/uL (0.00-0.23); IMMATURE GRAN PERCENT AUTO 0.4 % (0.0-0.7); LYMPHOCYTES ABSOLUTE AUTO 1.51 K/uL (0.8-3.3); LYMPHOCYTES PERCENT AUTO 12.3 % (11.4-47.7); MEAN CORPUSCULAR HEMOGLOBIN 29.1 pg (31.6-35.5); MEAN CORPUSCULAR HGB CONC 30.6 g/dL (31.6-35.5); MEAN CORPUSCULAR VOLUME 95.2 fL (81.4-99.0); MONOCYTES ABSOLUTE AUTO 0.66 K/uL (0.20-0.90); MONOCYTES PERCENT AUTO 5.4 % (3.3-12.6); NEUTROPHILS ABSOLUTE AUTO 9.92 K/uL (1.0-7.6); NEUTROPHILS PERCENT AUTO 80.6 % (40.0-78.1); PLATELET COUNT,PLT 150 K/uL (130-375); RED BLOOD CELL COUNT 4.36 M/uL (4.14-5.76); WHITE BLOOD CELL COUNT,WBC 12.3 K/uL (3.2-11.0)
[2024-12-06 16:34] LABS: BASE EXCESS VENOUS 2.9 mm/L; BICARBONATE,VENOUS 29.9 mmol/L; CARBOXYHEMOGLOBIN 2.2 % (0.0-1.6); METHEMOGLOBIN 0.7 %; O2 SATURATION VENOUS 72.3; OXYHEMOGLOBIN 70.2 %; PCO2 VENOUS 59.2 mm/Hg; PH,VENOUS 7.323 (7.350-7.450); PO2 VENOUS 39.8 mm/Hg; TOTAL HEMOGLOBIN 13.1 g/dL (13.5-18.0)
[2024-12-06 16:51] LABS: PROTHROMBIN TIME 10.1 sec (9.2-10.6)
[2024-12-06 16:54] LABS: A/G RATIO 0.7 (1.2-2.2); ALANINE AMINOTRANSFERASE,ALT 16 U/L (12-78); ALBUMIN 2.9 g/dL (3.4-5.0); ALKALINE PHOSPHATASE 107 U/L (46-116); ANION GAP 5.1 mmol/L (5.0-14.0); ASPARTATE AMNIOTRANSFERASE,AST 12 U/L (15-37); BILIRUBIN TOTAL 0.5 mg/dL (0.2-1.0); BLOOD UREA NITROGEN,BUN 12 mg/dL (7-18); CALCIUM 8.7 mg/dL (8.5-10.1); CARBON DIOXIDE,CO2 32 mmol/L (21-32); CHLORIDE,CL 104 mmol/L (100-108); CREATININE 1.3 mg/dL (0.8-1.3); ESTIMATED GFR 57 mL/min (>60); GLUCOSE RANDOM 111 mg/dL (74-106); POTASSIUM,K 5.1 mmol/L (3.6-5.2); PROTEIN TOTAL,TP 6.8 g/dL (6.4-8.2); SODIUM,NA 141 mmol/L (140-148)
[2024-12-06] MEDS: Albuterol/Ipratropium 3.0-0.5 MG/3 ML Neb Soln NEB ONE (17:05)
[2024-12-06] MEDS: Sodium Chloride 0.9% 1,000 ML IV ONE (18:38)
[2024-12-06] MEDS: Iopamidol 755 Mg/ML 100 ML Bottle IV SCH (19:00)
[2024-12-06] MEDS: Sodium Chloride 0.9% 100 ML IV SCH (19:00)
[2024-12-06] MEDS: cefTRIAXone 2 GM in Sodium Chloride 0.9% 50 ML IV ONE (20:50)
== END 2024-12-06 22:08 ==
LOC: JP.ED 16:08
DX: J18.9 Pneumonia, unspecified organism (principal); E86.0 Dehydration; F03.90 Unspecified dementia, unspecified severity, without behavioral disturbance, psychotic disturbance, mood disturbance, and anxiety; I12.9 Hypertensive chronic kidney disease with stage 1 through stage 4 chronic kidney disease, or unspecified chronic kidney disease; N18.9 Chronic kidney disease, unspecified; I48.91 Unspecified atrial fibrillation; E78.00 Pure hypercholesterolemia, unspecified; J44.9 Chronic obstructive pulmonary disease, unspecified; K21.9 Gastro-esophageal reflux disease without esophagitis; Z88.8 Allergy status to other drugs, medicaments and biological substances; Z79.82 Long term (current) use of aspirin; Z79.51 Long term (current) use of inhaled steroids; Z79.899 Other long term (current) drug therapy; Z86.73 Personal history of transient ischemic attack (TIA), and cerebral infarction without residual deficits
CPT/HCPCS: 36415; 70450; 71045; 71275; 80053; 82803; 83605; 83880; 84484; 85025; 85610; 87040; 93005; 94640; 96361; 96365; 99285; J0696; J7030; J7620; Q9967; A9270-GY

== ENCOUNTER 2024-12-22 07:22 | Emergency (ER) | payer MEDICARE, OTHER ==
[2024-12-22 08:07] LABS: BASOPHILS ABSOLUTE AUTO 0.07 K/uL (0.00-0.10); BASOPHILS PERCENT AUTO 0.7 % (0.1-1.3); EOSINOPHILS ABSOLUTE AUTO 0.12 K/uL (0.00-0.40); EOSINOPHILS PERCENT AUTO 1.3 % (0.0-5.4); HEMATOCRIT 41.6 % (38.4-49.7); HEMOGLOBIN 12.8 g/dL (12.9-16.9); IMMATURE GRAN ABSOLUTE AUTO 0.06 K/uL (0.00-0.23); IMMATURE GRAN PERCENT AUTO 0.6 % (0.0-0.7); LYMPHOCYTES ABSOLUTE AUTO 1.84 K/uL (0.8-3.3); LYMPHOCYTES PERCENT AUTO 19.4 % (11.4-47.7); MEAN CORPUSCULAR HEMOGLOBIN 28.6 pg (31.6-35.5); MEAN CORPUSCULAR HGB CONC 30.8 g/dL (31.6-35.5); MEAN CORPUSCULAR VOLUME 93.1 fL (81.4-99.0); MONOCYTES ABSOLUTE AUTO 0.84 K/uL (0.20-0.90); MONOCYTES PERCENT AUTO 8.8 % (3.3-12.6); NEUTROPHILS ABSOLUTE AUTO 6.57 K/uL (1.0-7.6); NEUTROPHILS PERCENT AUTO 69.2 % (40.0-78.1); PLATELET COUNT,PLT 137 K/uL (130-375); RED BLOOD CELL COUNT 4.47 M/uL (4.14-5.76); WHITE BLOOD CELL COUNT,WBC 9.5 K/uL (3.2-11.0)
[2024-12-22 08:29] LABS: A/G RATIO 0.7 (1.2-2.2); ALANINE AMINOTRANSFERASE,ALT 20 U/L (12-78); ALBUMIN 2.9 g/dL (3.4-5.0); ALKALINE PHOSPHATASE 94 U/L (46-116); ASPARTATE AMNIOTRANSFERASE,AST 17 U/L (15-37); BILIRUBIN TOTAL 0.4 mg/dL (0.2-1.0); BLOOD UREA NITROGEN,BUN 20 mg/dL (7-18); CALCIUM 8.7 mg/dL (8.5-10.1); CARBON DIOXIDE,CO2 29 mmol/L (21-32); CHLORIDE,CL 105 mmol/L (100-108); CREATININE 1.2 mg/dL (0.8-1.3); ESTIMATED GFR 62 mL/min (>60); GLUCOSE RANDOM 103 mg/dL (74-106); POTASSIUM,K 4.6 mmol/L (3.6-5.2); PRO B-TYPE NATRIUR PEPT,BNPPRO 761 pg/mL (5-450); PROTEIN TOTAL,TP 6.9 g/dL (6.4-8.2); SODIUM,NA 139 mmol/L (140-148)
[2024-12-22 08:30] LABS: ANION GAP 9.6 mmol/L (5.0-14.0)
[2024-12-22 08:31] LABS: C-REACTIVE PROTEIN 11.09 mg/dL (<0.50); MAGNESIUM 1.8 mg/dL (1.8-2.4); TROPONIN I HIGH SENSITIVITY 18.2 pg/mL (<=60.3)
[2024-12-22 08:47] LABS: BASE EXCESS VENOUS 0 mm/L; BICARBONATE,VENOUS 27.1 mmol/L; CARBOXYHEMOGLOBIN 3.7 % (0.0-1.6); METHEMOGLOBIN 0.7 %; O2 SATURATION VENOUS 85.8; PCO2 VENOUS 57.2 mm/Hg; PH,VENOUS 7.297 (7.350-7.450); PO2 VENOUS 56.6 mm/Hg; TOTAL HEMOGLOBIN 13.5 g/dL (13.5-18.0)
[2024-12-22] MEDS: Albuterol/Ipratropium 3.0-0.5 MG/3 ML Neb Soln NEB ONE (08:57)
[2024-12-22] MEDS: Sodium Chloride 0.9% 1,000 ML IV ONE (08:59)
[2024-12-22] MEDS: hydrOXYzine HCl 25 MG Tab PO ONE (09:00)
[2024-12-22] MEDS ORDERED: Hypromellose 0.3% Ophth Soln 15 ML Bottle EYEBOTH PRN (09:05)
[2024-12-22] MEDS: ClonazePAM 0.5 MG Tab PO ONE (09:44)
[2024-12-22] MEDS: Hypromellose 0.3% Ophth Soln 15 ML Bottle EYEBOTH PRN (09:44)
[2024-12-22] MEDS: OLANZapine 5 MG Tab PO ONE (11:03)
[2024-12-22] MEDS: Pregabalin 75 MG Cap PO ONE (13:40)
[2024-12-22] MEDS: Pregabalin 50 MG Cap PO ONE (13:40)
[2024-12-22] MEDS: Pregabalin 100 MG Cap PO ONE (14:42)
[2024-12-22] MEDS: OLANZapine 5 MG Tab PO PRN (18:58)
[2024-12-22 19:00] LABS: APPEARANCE,URINE CLEAR (CLEAR); BILIRUBIN,URINE NEGATIVE (NEGATIVE); COLOR,URINE YELLOW (YELLOW); GLUCOSE,URINE NEGATIVE (NEGATIVE); KETONES,URINE NEGATIVE (NEGATIVE); LEUKOCYTE ESTERASE,URINE NEGATIVE (NEGATIVE); NITRITE,URINE NEGATIVE (NEGATIVE); OCCULT BLOOD,URINE SMALL (NEGATIVE); PROTEIN,URINE 30 mg/dL (NEGATIVE); UROBILINOGEN,URINE 0.2 EU/dL (0.2-1.0)
[2024-12-22 19:09] LABS: AMORPHOUS SEDIMENT,URINE FEW; BACTERIA,URINE RARE; EPITHELIAL CELLS,URINE FEW; MUCUS,URINE NOT SEEN
[2024-12-22] MEDS: Loperamide 2 MG Cap PO ONE (20:44)
[2024-12-22] MEDS ORDERED: [UNRECOGNIZED DRUG - OTHER] EYERT SCH ×2 (22:30→22:45)
[2024-12-22] MEDS ORDERED: POVIDONE EYEBOTH SCH ×2 (22:30→22:45)
[2024-12-22] MEDS ORDERED: Albuterol 6.7 GM Inhaler INH PRN (22:30)
[2024-12-22] MEDS ORDERED: POLYVINYL ALCOHOL EYEBOTH SCH ×2 (22:30→22:45)
[2024-12-22] MEDS ORDERED: Non-Formulary Medication 1 Each (Dextran 70/Hypromellose [Artificial Tears] 1 EACH Dropere EYEBOTH SCH (22:30)
[2024-12-22] MEDS ORDERED: Non-Formulary Medication 1 Each (Nicotine Polacrilex [Nicotine Lozenge] 2 MG Lozenge) PO SCH ×2 (22:30→22:45)
[2024-12-22] MEDS ORDERED: Albuterol/Ipratropium 3.0-0.5 MG/3 ML Neb Soln NEB PRN (22:30)
[2024-12-22] MEDS ORDERED: Non-Formulary Medication 1 Each (Simvastatin [Simvastatin] 10 MG) PO SCH (22:55)
[2024-12-22] MEDS: Pregabalin 100 MG Cap ONE (23:16)
[2024-12-22] MEDS: Pregabalin 100 MG Cap PO SCH (23:19)
[2024-12-22] MEDS: hydrOXYzine HCl 25 MG Tab PO SCH (23:19)
[2024-12-22] MEDS: traZODone 50 MG Tab PO SCH (23:20)
[2024-12-22] MEDS: ClonazePAM 0.5 MG Tab PO PRN (23:20)
[2024-12-22] MEDS: Mirtazapine 15 MG Tab PO SCH (23:21)
[2024-12-22] MEDS: Carvedilol 3.125 MG Tab PO SCH (23:22)
[2024-12-23] MEDS: Pregabalin 100 MG Cap PO SCH (08:45)
[2024-12-23] MEDS: Sennosides/Docusate Sodium 50-8.6 MG Tab PO SCH (08:47)
[2024-12-23] MEDS: Lisinopril 20 MG Tab PO SCH (08:48)
[2024-12-23] MEDS: Aspirin 81 MG Tab.Chew PO SCH (08:48)
[2024-12-23] MEDS ORDERED: hydrOXYzine HCl 25 MG Tab PO SCH (09:00)
[2024-12-23] MEDS ORDERED: DIFLUPREDNATE EYERT SCH ×2 (09:00)
[2024-12-23] MEDS ORDERED: Carvedilol 3.125 MG Tab PO SCH (09:00)
[2024-12-23] MEDS ORDERED: Pregabalin 100 MG Cap PO SCH (21:00)
[2024-12-23] MEDS ORDERED: Mirtazapine 15 MG Tab PO SCH (21:00)
[2024-12-23] MEDS ORDERED: Non-Formulary Medication 1 Each (Simvastatin [Simvastatin] 10 MG Tablet) PO SCH ×2 (21:00)
[2024-12-23] MEDS ORDERED: traZODone 50 MG Tab PO SCH (21:00)
[2024-12-23] MEDS ORDERED: Non-Formulary Medication 1 Each (Polyvinyl Alcohol/Povidone [Refresh] 1 DROP) EYEBOTH PRN (22:36)
[2024-12-24] MEDS: Acetaminophen 325 MG Tab PO PRN (06:21)
[2024-12-24] MEDS: Loperamide 2 MG Cap PO ONE (23:07)
[2024-12-25] MEDS: valACYclovir 500 MG Tab PO SCH (15:02)
[2024-12-25] MEDS ORDERED: QUEtiapine 25 MG Tab PO PRN (15:33)
[2024-12-25] MEDS: ClonazePAM 0.5 MG Tab PO SCH (20:26)
[2024-12-25] MEDS: QUEtiapine 25 MG Tab PO SCH (20:28)
[2024-12-25] MEDS: OPTH EYERT SCH (20:30)
[2024-12-25] MEDS: GANCICLOVIR 0.15% EYERT SCH (20:30)
[2024-12-25] MEDS: VANCOmycin 125 MG Cap PO SCH (21:49)
[2024-12-26 13:36] LABS: APPEARANCE,URINE SLIGHTLY CLOUDY (CLEAR); COLOR,URINE YELLOW (YELLOW); PH,URINE 5.5 (5.0-8.0)
[2024-12-26 13:44] LABS: GLUCOSE,URINE NORMAL (NEGATIVE); KETONES,URINE NEGATIVE (NEGATIVE); PROTEIN,URINE NEGATIVE (NEGATIVE)
[2024-12-26 13:45] LABS: AMORPHOUS SEDIMENT,URINE MODERATE; BACTERIA,URINE MODERATE; BILIRUBIN,URINE NEGATIVE (NEGATIVE); EPITHELIAL CELLS,URINE FEW; LEUKOCYTE ESTERASE,URINE MODERATE (NEGATIVE); MUCUS,URINE NOT SEEN; NITRITE,URINE NEGATIVE (NEGATIVE); OCCULT BLOOD,URINE TRACE (NEGATIVE); RBC,URINE 0-5 (0-5); UROBILINOGEN,URINE 0.2 EU/dL (0.2-1.0); WBC,URINE 50-75 (0-5)
== END 2024-12-26 18:15 ==
LOC: JP.ED 07:22
DX: S00.83XA Contusion of other part of head, initial encounter (principal); R53.1 Weakness; E86.0 Dehydration; I48.91 Unspecified atrial fibrillation; E78.00 Pure hypercholesterolemia, unspecified; I10 Essential (primary) hypertension; J44.9 Chronic obstructive pulmonary disease, unspecified; K21.9 Gastro-esophageal reflux disease without esophagitis; Z86.73 Personal history of transient ischemic attack (TIA), and cerebral infarction without residual deficits; Z79.82 Long term (current) use of aspirin; Z79.899 Other long term (current) drug therapy; Z88.8 Allergy status to other drugs, medicaments and biological substances; Z88.1 Allergy status to other antibiotic agents; Z88.5 Allergy status to narcotic agent; W01.198A Fall on same level from slipping, tripping and stumbling with subsequent striking against other object, initial encounter
CPT/HCPCS: 36415; 70450; 71045; 80053; 81001; 82803; 83605; 83735; 83880; 84484; 85025; 86140; 87086; 87635; 93005; 94640; 96360; 96361; 97162; 99285; A9270; C1758; J7030; J7620; 93010; 99284; U0002